=== PATIENT | female | born 1970 | race Caucasian/White ===

== ENCOUNTER 2019-04-29 13:56 | Inpatient (IN) | payer OTHER ==
[~2019-04-29] VITALS: Ht 167.6 cm; Wt 69.4 kg
[2019-04-29 16:45] VITALS: BP 161/70
[2019-04-29] MEDS ORDERED: WARFARIN SOD 5 MG TAB PO SCH (17:00)
[2019-04-29] MEDS ORDERED: MOM 30ML SUSPENSION UDC PO PRN (17:30)
[2019-04-29] MEDS ORDERED: diphenhydrAMINE CREAM 30GM TOP PRN (17:30)
[2019-04-29] MEDS ORDERED: THIA100T7 PO (18:13)
[2019-04-29] MEDS ORDERED: VITMTA PO (18:13)
[2019-04-29] MEDS ORDERED: WARF-23 PO (18:13)
[2019-04-29] MEDS ORDERED: WARF-18 PO (18:13)
[2019-04-29] MEDS ORDERED: PANT-23 PO (18:13)
[2019-04-29] MEDS ORDERED: FOLI1TAB11 PO (18:13)
[2019-04-29] MEDS ORDERED: LIPI80TA PO (18:13)
[2019-04-29] MEDS ORDERED: FLUO20CA22 PO (18:13)
[2019-04-29] MEDS ORDERED: COLA100C5 PO (18:13)
[2019-04-29] MEDS ORDERED: METO25TA4 PO (18:13)
[2019-04-29] MEDS ORDERED: VITA1CHW7 PO (18:13)
[2019-04-29] MEDS ORDERED: ASPI81TA26 PO (18:13)
--- NOTE | 2019-04-29 18:53 | CR.PDOC ---
General Date of Consultation: Apr 29, 2019 Referring Provider: YEYO PAINTING MD Attending Physician: ERIKA DUNLAP MD Consultation HOSPITALIST CONSULT REASON FOR CONSULTATION/CHIEF COMPLAINT: medical management of acute rehab patient HISTORY OF PRESENT ILLNESS: This is 49-year-old female with history of hypertension and tobacco use who presented to [facility] for left-sided hemiplegia and dysarthria. Was found to have hypoattenuation of the right MCA territory on CT head, and lab work revealing NSTEMI. She was diagnosed with an acute ischemic stroke with multifocal right MCA territory, right frontal and posterior parietal regions, left thumb make lacunar infarct, suspected embolic stroke 2/2 severe right ICA stenosis stenosis versus ventricular thrombus. Patient was started on warfarin goal INR 2-3, baby aspirin, atorvastatin, fluoxetine to promote motor recovery, and metoprolol. She was discharged to [facility] due to proximity to her home, and plan to follow-up outpatient neurology and cardiology. Hospitalist was consulted for continued medical management. Patient has no current complaints while examined at bedside. Continues to have left arm motor weakness and episodic paresthesia, however reports sensation has fully recovered. Also has residual left facial droop, but able to function without deficits in vision or language. Tolerating diet well. Denies any n/v/abd pain, chest pain, leg pain, or loss of sensation. ALLERGIES: Please see below. HOME MEDICATIONS: Please see below. PAST MEDICAL HISTORY: Acute embolic ischemic stroke-multifocal right MCA territory, right frontal and posterior parietal regions, left thalamic lacunar infarct Severe right carotid bifurcation stenosis >95%, 50% stenosis at left carotid bifurcation Ventricular thrombus chronic heart failure with reduced EF LVEF 40-45% Apical thrombus with hypokinetic apical wall NSTEMI-Ischemic cardiomyopathy with apical thrombus Hypertension Transient supraventricular tachycardia Right axillary hydradenitis Alcohol use disorder with withdrawal Pulmonary edema PAST SURGICAL HISTORY: none FAMILY HISTORY: strokes & heart attacks in multiple family members SOCIAL HISTORY: Tobacco: smoked 1.5 ppd for 15 years, quit since stroke Alcohol: drank 1 12-oz beer for years since years ago Work: [employer] Lives at home with REVIEW OF SYSTEMS: Constitutional: Denies fever, chills Eyes: Denies eye pain, vision change ENT: Denies headaches, ear pain, dysphagia Skin: Denies any rashes or lesions Pulmonary: Denies dyspnea, cough, wheezing Cardiac: Denies chest pain, palpitations, lightheadedness GI: Denies nausea, vomiting, abdominal pain MSK: Denies any new pains or muscle aches Neurologic: Admits left arm motor weakness and paresthesia. Denies sensory loss or any other deficit PHYSICAL EXAMINATION: VITAL SIGNS: Please see below. General exam: Alert and cooperative, A&Ox3, NAD Eye exam: PERRLA, EOMI ENT: Atraumatic, normocephalic, mucous membranes moist, no pharyngeal edema Neck: Supple Cardiac: RRR, normal S1 & S2, no murmurs Respiratory: CTAB, good air exchange, no wheezing, rhonchi, or rales Abdomen: normoactive bowel sounds, soft, nontender, nondistended Extremity: 2+ radial pulse on right, diminished on left arm, no edema or calf tenderness. Well-perfused x4 MSK: able to move all extremities independently against gravity, 5/5 in all limbs except left arm which is 3/5-only able to hold against gravity for few seconds, then drops. Skin: [place], warm, dry, no visible rash or lesions Neuro: normal tone & agent producer strength b/l, sensation intact throughout, normal speech, left facial droop with limited expression compared to right Psych: Normal mood and affect LABORATORY DATA: Please see below. ASSESSMENT/PLAN: 49-year-old female with recently diagnosed acute ischemic stroke, severe right ICA stenosis, ventricular thrombus, NSTEMI, ischemic cardio myopathy, transient SVT, alcohol tobacco use treated medically at [facility] and what appears to be without any surgical intervention. She is admitted to [facility] acute rehabilitation. Hospitalist is following for medical management 1. S/P ischemic stroke with residual left motor and facial deficits. Continue working with rehabilitation. Continue warfarin INR goal 2-3. Check daily labs and per [facility] recommendations, continue aspirin 81 mg, goal SBP 100-140, atorvastatin 80 mg, fluoxetine 20 mg. 2. Recent NSTEMI/ischemic cardiomyopathy: No current cardiac complaints. Hemodynamically stable. Per records, attributed to hypercoagulable state and left ventricular thrombus. Continue warfarin with goal INR 2-3 and follow-up outpatient cardiology. 3. Essential hypertension: Controlled. Continue Metoprolol 25mg twice a day 4. Transient asymptomatic SVT: See #3 5. Ischemic cardiomyopathy with apical thrombus: Currently stable. Continue warfarin and outpatient cardiology follow-up for repeat echo 6. History of alcohol use disorder with withdrawal: Patient has not drank since her stroke. S/p Serax taper at [facility]. Currently stable without any wit hdrawal. Continue thiamine folate multivitamin. DVT prophylaxis: Coumadin GI prophylaxis: Protonix CODE STATUS: Full code-discussed with the patient in depth, and patient verbalized YES to CPR and YES to intubation Disposition: Continue with acute rehabilitation. Thank you for involving us in this patient's care. We will follow along. Please call for any questions. Vital Signs/I&O Vital Signs Date Time Temp Pulse Resp B/P (MAP) Pulse Ox O2 Delivery O2 Flow Rate FiO2 04/29/19 16:45 98.6 70 18 161/70 (100) 98 Allergies Coded Allergies: No Known Allergies (Unverified , 04/29/19) Home Medications Scheduled Aspirin (Aspirin EC) 81 Mg Tablet.dr, 81 MG PO DAILY, (Reported) STARTED AT [facility] Atorvastatin Calcium (Lipitor) 80 Mg Tablet, 80 MG PO DAILY, (Reported) STARTED AT [facility] Cholecalciferol (Vitamin D3) (Vitamin D3) 2,000 Unit Tab.chew, 2,000 UNIT PO DAILY, (Reported) Docusate Sodium (Colace) 100 Mg Capsule, 100 MG PO BID, (Reported) STARTED AT [facility] Fluoxetine Hcl (Fluoxetine HCl) 20 Mg Capsule, 20 MG PO DAILY, (Reported) STARTED AT [facility] Folic Acid (Folic Acid) 1 Mg Tablet, 1 MG PO DAILY, (Reported) STARTED AT [facility] Metoprolol Tartrate (Metoprolol Tartrate) 25 Mg Tablet, 25 MG PO BID, (Reported) STARTED AT [facility] Multivitamins (Thera M Plus Tablet) 1 Each Tablet, 1 TAB PO DAILY, (Reported) STARTED AT [facility] Pantoprazole Sodium (Pantoprazole Sodium) 40 Mg Tablet.dr, 40 MG PO DAILY, (Reported) STARTED AT [facility] Thiamine HCl (Thiamine HCl) 100 Mg Tablet, 100 MG PO DAILY, (Reported) STARTED AT [facility] Warfarin Sodium (Warfarin Sodium) 2.5 Mg Tablet, 2.5 MG PO 5XW, (Reported) STARTED AT [facility]: SUN, TUES, WED, THURS, SAT Warfarin Sodium (Warfarin Sodium) 5 Mg Tablet, 5 MG PO 2XW, (Reported) STARTED AT [facility]: MON, FRI GME ATTESTATION GME ATTESTATION My faculty preceptor for this patient encounter was physically present during the encounter and was fully available. All aspects of the patient interview, examination, medical decision making process, and medical care plan development were reviewed and approved by the faculty preceptor. The faculty preceptor is aware and concurs with the plan as stated in the body of this note and will attest to such by his/her cosignature. ATTENDING NOTE I, Erika Dunlap, have independently examined this patient and performed my own physical exam, as well as reviewed the documentation and edited where necessary. I have discussed in detail with the resident / student the findings and plan of treatment as documented by the resident / student and edited their note. I agree with their findings and treatment plan and have edited their documentation. I will continue to follow the patient during this hospital stay. NICOLE FARRAR DO Apr 29, 2019 18:53 ERIKA DUNLAP MD May 12, 2019 15:51
[2019-04-29 20:00] VITALS: BP 117/59
[2019-04-29] MEDS: METOPROLOL TART 25 MG TABLET PO SCH (22:21)
[2019-04-29] MEDS: DOCUSATE SODIUM 100 MG CAP PO SCH (22:22)
[2019-04-29] MEDS: SENNA 8.6 MG TAB (SENOKOT) PO SCH (22:22)
[2019-04-29] MEDS: REMEDY PHYTOPLEX Z-GUARD PASTE 113GM TUBE (FROM STOREROOM PRODUCT) TOP SCH (22:22)
[2019-04-30 06:00] VITALS: BP 104/52
[2019-04-30 06:34] LABS: BASO # 0.1 10^3/uL (0.0-0.2); BASO % 0.6 % (0.0-1.0); EOS # 0.3 10^3/uL (0.0-0.5); EOS % 2.3 % (0.0-3.0); HEMATOCRIT 37.1 % (36.0-47.0); HEMOGLOBIN 12.2 g/dl (12.0-15.5); LYMPH # 3.9 10^3/uL (1.5-5.0); LYMPH % 31.1 % (24.0-44.0); MEAN CORPUSCULAR HEMOGLOBIN 28.8 pg (27.0-33.0); MEAN CORPUSCULAR HGB CONC 32.9 g/dl (32.0-36.5); MEAN CORPUSCULAR VOLUME 87.5 fl (80.0-96.0); MONO # 0.9 10^3/uL (0.0-0.8); MONO % 7.5 % (0.0-5.0); NEUTROPHILS # 7.3 10^3/uL (1.5-8.5); NEUTROPHILS % 58.3 % (36.0-66.0); PLATELET COUNT, AUTOMATED 436 10^3/uL (150-450); RED BLOOD COUNT 4.24 10^6/uL (4.00-5.40); WHITE BLOOD COUNT 12.5 10^3/uL (4.0-10.0)
[2019-04-30 06:51] LABS: INR 2.94; PROTHROMBIN TIME 30.6 SECONDS (11.8-14.0)
[2019-04-30 07:00] LABS: ALBUMIN 2.9 GM/DL (3.2-5.2); ALT/SGPT 29 U/L (12-78); BILIRUBIN,TOTAL 0.4 MG/DL (0.2-1.0); BLOOD UREA NITROGEN 8 MG/DL (7-18); CALCIUM LEVEL 9.2 MG/DL (8.5-10.1); CARBON DIOXIDE LEVEL 28 MEQ/L (21-32); CHLORIDE LEVEL 105 MEQ/L (98-107); CREATININE FOR GFR 0.69 MG/DL (0.55-1.30); GLOMERULAR FILTRATION RATE > 60.0 (>58); GLUCOSE, FASTING 105 MG/DL (70-100); POTASSIUM SERUM 4.1 MEQ/L (3.5-5.1); SODIUM LEVEL 137 MEQ/L (136-145); TOTAL PROTEIN 7.2 GM/DL (6.4-8.2)
[2019-04-30] MEDS: DOCUSATE SODIUM 100 MG CAP PO SCH ×2 (09:00→21:00)
[2019-04-30] MEDS: REMEDY PHYTOPLEX Z-GUARD PASTE 113GM TUBE (FROM STOREROOM PRODUCT) TOP SCH ×3 (09:00→21:21)
[2019-04-30] MEDS: PANTOPRAZOLE 40MG TAB (PROTONIX) PO SCH (09:18)
[2019-04-30] MEDS: FOLIC ACID 1 MG TAB PO SCH (09:18)
[2019-04-30] MEDS: VITAMIN D 1,000 INTERNATIONAL UNITS TABLET PO SCH (09:18)
[2019-04-30] MEDS: THIAMINE 100 MG TAB PO SCH (09:18)
[2019-04-30] MEDS: ASPIRIN 81 MG ENTERIC TAB PO SCH (09:18)
[2019-04-30] MEDS: ATORVASTATIN 20 MG TAB PO SCH (09:19)
[2019-04-30] MEDS: METOPROLOL TART 25 MG TABLET PO SCH ×2 (09:19→21:18)
[2019-04-30] MEDS: FLUoxetine 20 MG CAP PO SCH (09:19)
[2019-04-30] MEDS: MULTIVITAMINS/MINERALS THERAP 1 TAB PO SCH (09:19)
[2019-04-30 10:17] VITALS: BP 108/50
--- NOTE | 2019-04-30 12:55 | HPEPDOC ---
[facility] Note DATE OF ADMISSION: 04-29-19 DATE OF SERVICE: 04-30-19 TIME OF ADMISSION: Please refer to physician's admission order. SOURCE OF ADMISSION INFORMATION: [facility] and patient CHIEF COMPLAINT: stroke HISTORY OF PRESENT ILLNESS: 49F pmh HLD, etoh abuse, smoking, HTN, right axilla wound who presented to [facility] 04[facility] with left sided weakness and rightward gaze palsy with dysarthria where she was admitted to the stroke service, outside of the tPA window. MRI on 04-12-19 showed, Acute right middle cerebral artery infarct. No hemorrhage. CTA neck showed, Advanced atherosclerotic plaque disease at the right carotid bifurcation results in greater than 95 % diameter stenosis with diminutive flow within the distal right ICA that continues into the skull base and right MCA territory. Initial ECHO on 04-11-19 showed LVEF of 40-45% with an LV apical thrombus for which she was started on Heparin and transitioned to warfarin. Carotid endovascular intervention was postponed to avoid hemorrhagic conversion with patient instructed to follow-up with neurosurgery in 3 months. Of note she also was found to have an NSTEMI on admission for which intervention was deferred in setting of large vessel infarct. She was instructed to follow-up with cardiology in 3 months for repeat ECHO and to determine if she should continue Warfarin. Her right axillary hidradenitis suppurativa was treated with a course of antibiotics and she underwent etoh withdrawal treatment with Serax. She was placed on a dysphagia diet, evaluated by therapy, found to have deficits in mobility and ADLs and deemed medically appropriate for discharge to ARU on . REVIEW OF SYSTEMS: The following is a completed review of systems and has been reviewed. Review of systems otherwise unremarkable. PAIN: Patient self reports no pain EYES: No recent vision changes EARS, NOSE, & THROAT: +dysphagia CARDIOVASCULAR: Denies chest pain or palpitations PULMONARY: Denies shortness of breath GASTROINTESTINAL: Denies constipation/diarrhea GENITOURINARY: denies dysuria MUSCULOSKELETAL: left sided paresis NEUROLOGICAL:left sided neglect and paresis HEMATOLOGICAL: denies easy bruising SKIN: intact PSYCHIATRIC: Unremarkable All other review of systems found to be negative. PAST MEDICAL HISTORY: as per hpi PAST SURGICAL HISTORY: n/a ALLERGIES: Please see below. MEDICATIONS: Please see below. SOCIAL HISTORY:+daily smoker, +etoh, denies illicit drugs DIET: puree PHYSICAL EXAMINATION: VITAL SIGNS: Please see below. GENERAL: Pleasant and cooperative. No acute distress. left sided facial droop, +tongue deviation to the left HEENT: PERRL. Extraocular movements intact. Clear conjunctiva CARDIOVASCULAR: Regular rate and rhythm. No murmurs, rubs, or gallops LUNGS: Clear to auscultation bilaterally. No wheezes. No rhonchi]. ABDOMEN: Soft, nontender, nondistended. Positive bowel sounds. Normal active bowel sounds NEUROLOGICAL: Alert and oriented times three. Cranial nerves II through XII grossly intact. Sensation intact in RUE and RLE, patient has considerable neglect with decreased sensation left side EXTREMITIES: 5\5 strength right upper extremities. Left elbow flexor 2/3, elbow extensors 3/5, wrist extension 2/5, x ray equipment tester 3/5 (patient able to do it once her attention is brought to left side) 5/5 strength right lower extremity. 4-/5 strength in left lower extremity. SKIN: intact LABORATORY DATA: Please see below. IMAGING:Imaging documentation personally reviewed by record FUNCTIONAL STATUS: Premorbid: Independent with all activities of daily life as well as mobility On Admission: Moderate assistance with bed mobility, ambulation, functional transfers, dressing, toileting GOALS: Mod-I household distances with RW, stairs, functional transfers, bathing, dressing, toileting ASSESSMENT:49-year-old F with past medical history of hld who presents status post right MCA infarct PLAN: 1. rehab- PT/OT advance gait and ADL training, dynamic balance, fall recovery- strengthen/stretch/maintain ROM all 4 limbs -[employer]ODUCTION WORK[employer] for cognition and dysphagia- puree diet 2. Neuro: s/p right MCA infarct with left sided paresis -secondary stroke prevention- statin, ASA, BP management -Prozac for motor recovery -right ICA stenosis- f/u with neurosurgery in 3 months for possible procedure -for ETOH abuse management c/u thiamine, folic acid 3. cardiac: hx of HTN and recent NSTEMI c/u metoprolol and ASA- medicine consulted to assist in management -+LV thrombus on Warfarin, daily INRs goal 2-3, f/u with cardiology as outpatient top determine duration of treatment 4. Resp: monitor for infection, encourage incentive spirometer -Duonebs prn given hx of smoking 5. GI ppx: protonix 6. DVT ppx: on coumadin 7. Pain: tylenol prn 8. Dispo: TBD POST ADMISSION PHYSICIAN EVALUATION: Medical and functional status: Description of medical status, medical assessment: As above. Rehabilitation diagnosis and current and prior cold morbid medical conditions as above. Risk of complications and plans to mitigate them as above. Description of functional status current status is as above. Prior status as above. Status compared to preadmission: There are no clinically significant differences between the patient's current status and the information described on the preadmission screening document. Treatment plan anticipated: Treatment plan is as described above. Required disciplines including physical therapy, occupational therapy, others as noted above. Intensity of services: 3 hours a day, 6 days a week. Special considerations: There are no specific special or safety considerations that would likely preclude immediate implementation of an intensive rehabilitation program or subsequently influence the plan of care. ATTESTATION: Considering all the information above, it is my best judgment that this patient requires intensive rehabilitation therapy as described above and an inpatient hospital environment due to the complexity of nursing, medical, and rehabilitation needs required by the patient. Furthermore, this patient can reasonably be expected to participate in an benefit from an inpatient rehabilitation stay with an interdisciplinary team approach to the delivery of rehabilitation care under the direction and supervision of rehabilitation physician. PROGNOSIS: good ESTIMATED LENGTH OF STAY:21-24 days. PROJECTED DISCHARGE DESTINATION: Home with family support and any durable medical equipment required to increase functional safety and mobility. TIME SPENT COUNSELING AND COORDINATING INITIAL CARE: Greater than 70 minutes. Vital Signs Vital Sign - Last 24 Hours 04/29/19 04/29/19 04/29/19 04/30/19 16:45 20:00 22:21 06:00 Temp 98.6 97.9 97.8 Pulse 70 71 70 65 Resp 18 18 18 B/P (MAP) 161/70 (100) 117/59 (78) 130/48 104/52 (69) Pulse Ox 98 100 100 O2 Delivery Room Air Room Air 04/30/19 04/30/19 09:19 10:17 Temp 97.8 Pulse 66 66 Resp 18 B/P (MAP) 108/50 108/50 Pulse Ox 100 O2 Delivery Room Air Laboratory Data CBC/BMP Laboratory Tests 04/30/19 06:06 Labs 24H Laboratory Tests 2 04/30/19 06:06: Immature Granulocyte % (Auto) 0.2, Neutrophils (%) (Auto) 58.3, Lymphocytes (%) (Auto) 31.1, Monocytes (%) (Auto) 7.5H, Eosinophils (%) (Auto) 2.3, Basophils (%) (Auto) 0.6, Neutrophils # (Auto) 7.3, Lymphocytes # (Auto) 3.9, Monocytes # (Auto) 0.9H, Eosinophils # (Auto) 0.3, Basophils # (Auto) 0.1, Nucleated Red Blood Cells % (auto) 0.0, Prothrombin Time 30.6H, Prothromb Time International Ratio 2.94, Anion Gap 4L, Glomerular Filtration Rate > 60.0, Calcium Level 9.2, Total Bilirubin 0.4, Aspartate Amino Transf (AST/SGOT) 20, Alanine Aminotransferase (ALT/SGPT) 29, Alkaline Phosphatase 70, Total Protein 7.2, Albumin 2.9L, Albumin/Globulin Ratio 0.67L Home Medications Scheduled Aspirin (Aspirin EC) 81 Mg Tablet.dr, 81 MG PO DAILY, (Reported) STARTED AT [facility] Atorvastatin Calcium (Lipitor) 80 Mg Tablet, 80 MG PO DAILY, (Reported) STARTED AT [facility] Cholecalciferol (Vitamin D3) (Vitamin D3) 2,000 Unit Tab.chew, 2,000 UNIT PO DAILY, (Reported) Docusate Sodium (Colace) 100 Mg Capsule, 100 MG PO BID, (Reported) STARTED AT [facility] Fluoxetine Hcl (Fluoxetine HCl) 20 Mg Capsule, 20 MG PO DAILY, (Reported) STARTED AT [facility] Folic Acid (Folic Acid) 1 Mg Tablet, 1 MG PO DAILY, (Reported) STARTED AT [facility] Metoprolol Tartrate (Metoprolol Tartrate) 25 Mg Tablet, 25 MG PO BID, (Reported) STARTED AT [facility] Multivitamins (Thera M Plus Tablet) 1 Each Tablet, 1 TAB PO DAILY, (Reported) STARTED AT [facility] Pantoprazole Sodium (Pantoprazole Sodium) 40 Mg Tablet.dr, 40 MG PO DAILY, (Reported) STARTED AT [facility] Thiamine HCl (Thiamine HCl) 100 Mg Tablet, 100 MG PO DAILY, (Reported) STARTED AT [facility] Warfarin Sodium (Warfarin Sodium) 2.5 Mg Tablet, 2.5 MG PO 5XW, (Reported) STARTED AT [facility]: SUN, TUES, WED, THURS, SAT Warfarin Sodium (Warfarin Sodium) 5 Mg Tablet, 5 MG PO 2XW, (Reported) STARTED AT [facility] - [facility]: MON, FRI Allergies Coded Allergies: No Known Allergies (Unverified , 04/29/19) A-FIB/CHADSVASC A-FIB History Current/History of A-Fib/PAF?: No YEYO PAINTING MD Apr 30, 2019 12:55
[2019-04-30] MEDS ORDERED: IPRATROPIUM 0.5MG/ALBUTEROL 2.5MG INH SOL UD 3ML (DUONEB)(J7620) NEB PRN (13:00)
[2019-04-30 14:00] VITALS: BP 128/62
--- NOTE | 2019-04-30 14:12 | IPNPDOC ---
Text Note Date of Service The patient was seen on 04/30/19. NOTE HOSPITALIST NOTE S: Pt examined at bedside. Has no new complaints. Is feeling well, tolerating diet and rehabilitation. Denies all symptoms, including chest pain/palpitations, shortness of breath, new paresthesias or deficits, nausea, vomiting. PE: Vitals: see below General: NAD, A&Ox3, resting comfortably HEENT: NCAT, EOMI, anicteric sclera, MMM CV: RRR, no murmurs or clicks or rub. No edema RESP: CTAB, no w/r/r/ ABD: soft, NT, ND. Benign EXTREMITIES: 2+ radial pulses b/l, able to move all extremities, 3/5 on left arm, 5/5 remaining 3 limbs NEURO: no acute changes. Sensation intact throughout. No slurred speech A/P: 49-year-old female with recently diagnosed acute ischemic stroke, severe right ICA stenosis, ventricular thrombus, NSTEMI, ischemic cardio myopathy, transient SVT, alcohol tobacco use treated medically at [facility] and what appears to be without any surgical intervention. She is admitted to [facility] acute rehabilitation. Hospitalist is following for medical management 1. S/P ischemic stroke with residual left arm motor and facial deficits. Continue rehabilitation. Continue warfarin, in therapeutic range with INR goal 2-3. Continue aspirin 81 mg, goal SBP 100-140, atorvastatin 80 mg, fluoxetine 20 mg. 2. Recent NSTEMI/ischemic cardiomyopathy: No cardiac complaints. Hemodynamically stable. Continue warfarin with goal INR 2-3 and follow-up outpatient cardiology per their recommendations 3. Essential hypertension: Controlled. Continue Lopressor 25mg twice a day 4. Transient asymptomatic SVT: See #3 5. Ischemic cardiomyopathy with apical thrombus: Stable, no anginal equivaents. Continue warfarin and outpatient cardiology follow-up for repeat echo 6. History of alcohol use disorder with withdrawal: Patient has not drank since her stroke. S/p Serax taper at [facility]. Currently stable without any withdrawal. Continue thiamine folate multivitamin. DVT prophylaxis: Coumadin GI prophylaxis: Protonix CODE STATUS: Full code-discussed in depth on initial consult Disposition: Continue with acute rehabilitation. Hospitalist will continue following. Attending: Patient seen and examined independently. Agree with resident's note. VS,Naomi, I+O VS, Fishbone, I+O Laboratory Tests 04/30/19 06:06 Vital Signs Date Time Temp Pulse Resp B/P (MAP) Pulse Ox O2 Delivery O2 Flow Rate FiO2 04/30/19 10:17 97.8 66 18 108/50 100 Room Air I&O- Last 24 Hours up to 6 AM 04/30/19 06:00 Intake Total 420 ml Output Total 1200 ml Balance -780 ml GME ATTESTATION GME ATTESTATION My faculty preceptor for this patient encounter was physically present during the encounter and was fully available. All aspects of the patient interview, examination, medical decision making process, and medical care plan development were reviewed and approved by the faculty preceptor. The faculty preceptor is aware and concurs with the plan as stated in the body of this note and will attest to such by his/her cosignature. NICOLE FARRAR DO Apr 30, 2019 14:12 MARLA MACIAS MD May 13, 2019 22:05
[2019-04-30] MEDS ORDERED: WARFARIN SOD 2.5 MG TAB PO SCH (17:00)
[2019-04-30] MEDS: SENNA 8.6 MG TAB (SENOKOT) PO SCH (21:00)
[2019-04-30 21:03] VITALS: BP 124/96
[2019-05-01 05:47] VITALS: BP 139/61
[2019-05-01 07:41] LABS: BASO # 0.1 10^3/uL (0.0-0.2); BASO % 0.5 % (0.0-1.0); EOS # 0.2 10^3/uL (0.0-0.5); EOS % 1.7 % (0.0-3.0); HEMATOCRIT 40.3 % (36.0-47.0); HEMOGLOBIN 12.8 g/dl (12.0-15.5); LYMPH # 3.4 10^3/uL (1.5-5.0); LYMPH % 25.7 % (24.0-44.0); MEAN CORPUSCULAR HEMOGLOBIN 28.1 pg (27.0-33.0); MEAN CORPUSCULAR HGB CONC 31.8 g/dl (32.0-36.5); MEAN CORPUSCULAR VOLUME 88.4 fl (80.0-96.0); MONO # 0.7 10^3/uL (0.0-0.8); MONO % 5.1 % (0.0-5.0); NEUTROPHILS # 8.9 10^3/uL (1.5-8.5); NEUTROPHILS % 66.6 % (36.0-66.0); PLATELET COUNT, AUTOMATED 462 10^3/uL (150-450); RED BLOOD COUNT 4.56 10^6/uL (4.00-5.40); WHITE BLOOD COUNT 13.3 10^3/uL (4.0-10.0)
[2019-05-01 07:51] LABS: INR 3.41; PROTHROMBIN TIME 34.4 SECONDS (11.8-14.0)
[2019-05-01] MEDS: ATORVASTATIN 20 MG TAB PO SCH (08:51)
[2019-05-01] MEDS: THIAMINE 100 MG TAB PO SCH (08:51)
[2019-05-01] MEDS: FOLIC ACID 1 MG TAB PO SCH (08:51)
[2019-05-01] MEDS: MULTIVITAMINS/MINERALS THERAP 1 TAB PO SCH (08:51)
[2019-05-01] MEDS: VITAMIN D 1,000 INTERNATIONAL UNITS TABLET PO SCH (08:51)
[2019-05-01] MEDS: ASPIRIN 81 MG ENTERIC TAB PO SCH (08:51)
[2019-05-01] MEDS: PANTOPRAZOLE 40MG TAB (PROTONIX) PO SCH (08:51)
[2019-05-01] MEDS: FLUoxetine 20 MG CAP PO SCH (08:51)
[2019-05-01] MEDS: METOPROLOL TART 25 MG TABLET PO SCH ×2 (08:52→21:36)
[2019-05-01] MEDS: DOCUSATE SODIUM 100 MG CAP PO SCH ×2 (08:52→21:00)
[2019-05-01] MEDS: REMEDY PHYTOPLEX Z-GUARD PASTE 113GM TUBE (FROM STOREROOM PRODUCT) TOP SCH ×3 (08:52→21:00)
[2019-05-01 14:00] VITALS: BP 111/54
--- NOTE | 2019-05-01 15:19 | IPNPDOC ---
PM&R Progress Note DATE OF SERVICE: May 01, 2019 Bran Mixer Progress Note Subjective: Patient reporting mild cough with drinking liquids, denies fever or chills, denies difficulty urinating. REVIEW OF SYSTEMS: The following is a completed review of systems and has been reviewed. Review of systems otherwise unremarkable. PAIN: Patient self reports no pain EYES: No recent vision changes EARS, NOSE, & THROAT: +dysphagia CARDIOVASCULAR: Denies chest pain or palpitations PULMONARY: Denies shortness of breath GASTROINTESTINAL: Denies constipation/diarrhea GENITOURINARY: denies dysuria MUSCULOSKELETAL: left sided paresis NEUROLOGICAL:left sided neglect and paresis HEMATOLOGICAL: denies easy bruising SKIN: intact PSYCHIATRIC: Unremarkable All other review of systems found to be negative. PHYSICAL EXAMINATION: VITAL SIGNS: Please see below. GENERAL: Pleasant and cooperative. No acute distress. left sided facial droop, +tongue deviation to the left HEENT: PERRL. Extraocular movements intact. Clear conjunctiva CARDIOVASCULAR: Regular rate and rhythm. No murmurs, rubs, or gallops LUNGS: Clear to auscultation bilaterally. No wheezes. No rhonchi ABDOMEN: Soft, nontender, nondistended. Positive bowel sounds. Normal active bowel sounds NEUROLOGICAL: Alert and oriented times three. Cranial nerves II through XII grossly intact. Sensation intact in RUE and RLE, patient has considerable neglect with decreased sensation left side EXTREMITIES: 5\5 strength right upper extremities. Left elbow flexor 2/3, elbow extensors 3/5, wrist extension 2/5, shop manager 3/5 (patient able to do it once her attention is brought to left side) 5/5 strength right lower extremity. 4-/5 strength in left lower extremity. SKIN: intact ASSESSMENT:49-year-old F with past medical history of hld who presents status post right MCA infarct PLAN: 1. rehab- PT/OT advance gait and ADL training, dynamic balance, fall recovery- strengthen/stretch/maintain ROM all 4 limbs -TANK TENDER for cognition and dysphagia- puree diet and thins- MBS ordered for tomorrow to better determine if she can tolerate thins 2. Neuro: s/p right MCA infarct with left sided paresis -secondary stroke prevention- statin, ASA, BP management -Prozac for motor recovery -right ICA stenosis- f/u with neurosurgery in 3 months for possible procedure -for ETOH abuse management c/u thiamine, folic acid 3. cardiac: hx of HTN and recent NSTEMI c/u metoprolol and ASA- medicine consulted to assist in management -+LV thrombus on Warfarin, daily INRs goal 2-3, f/u with cardiology as outpatient top determine duration of treatment 4. Resp: monitor for infection, encourage incentive spirometer -Duonebs prn given hx of smoking 5. GI ppx: protonix 6. DVT ppx: on coumadin 7. Pain: tylenol prn 8. : patient denies dysuria, however given leukocytosis and sensory impairments, will order UA and Ucx 9. Dispo: TBD Allergies Coded Allergies: No Known Allergies (Unverified , 04/29/19) Vital Signs Vital Signs Date Time Temp Pulse Resp B/P (MAP) Pulse Ox O2 Delivery O2 Flow Rate FiO2 05/01/19 14:00 97.8 65 18 111/54 (73) 95 Room Air Laboratory Data CBC/BMP Laboratory Tests 05/01/19 07:13 Labs 24H Laboratory Tests 2 05/01/19 07:13: Immature Granulocyte % (Auto) 0.4, Neutrophils (%) (Auto) 66.6H, Lymphocytes (%) (Auto) 25.7, Monocytes (%) (Auto) 5.1H, Eosinophils (%) (Auto) 1.7, Basophils (%) (Auto) 0.5, Neutrophils # (Auto) 8.9H, Lymphocytes # (Auto) 3.4, Monocytes # (Auto) 0.7, Eosinophils # (Auto) 0.2, Basophils # (Auto) 0.1, Nucleated Red Bl ood Cells % (auto) 0.0, Prothrombin Time 34.4H, Prothromb Time International Ratio 3.41 Current Medications Current Medications Current Medications Medications (Trade) Dose Ordered Sig/[place] Route PRN Reason Start Time Stop Time Status Last Admin Dose Admin Acetaminophen (Tylenol Tab) 650 mg Q4HP PRN PO fever/MILD PAIN (PS 1-4) 04/29/19 17:30 Albuterol/ Ipratropium (Duoneb (Ipr 0.5mg/Alb 2.5mg)) 3 ml RTID PRN NEB wheeze 04/30/19 13:00 Aspirin (Ecotrin) 81 mg DAILY PO 04/30/19 09:00 05/01/19 08:51 Atorvastatin Calcium (Lipitor) 80 mg DAILY PO 04/30/19 09:00 05/01/19 08:51 Diphenhydramine HCl (Benadryl Cream) wherever she has rash/itch BIDP PRN TOP ITCHING 04/29/19 17:30 Docusate Sodium (Colace) 100 mg BID PO 04/29/19 21:00 Fluoxetine HCl (PROzac) 20 mg DAILY PO 04/30/19 09:00 05/01/19 08:51 Folic Acid (Folic Acid) 1 mg DAILY PO 04/30/19 09:00 05/01/19 08:51 Home Med (Med Rec Complete!) ASDIRECTED XX 04/29/19 18:15 04/29/19 18:14 DC Magnesium Hydroxide (Milk Of Magnesia) 30 ml DAILYPRN PRN PO CONSTIPATION 04/29/19 17:30 Metoprolol Tartrate (Lopressor) 25 mg BID PO 04/29/19 21:00 05/01/19 08:52 Multivitamins (Theragram-M) 1 tab DAILY PO 04/30/19 09:00 05/01/19 08:51 Pantoprazole Sodium (Protonix) 40 mg DAILY PO 04/30/19 09:00 05/01/19 08:51 Senna (Senokot) 1 tab QHS PO 04/29/19 21:00 Thiamine HCl (Thiamine HCl) 100 mg DAILY PO 04/30/19 09:00 05/01/19 08:51 Vitamin D (Vitamin D) 2,000 units DAILY PO 04/30/19 09:00 05/01/19 08:51 Warfarin Sodium (Coumadin) 2.5 mg DAILY@17 PO 05/02/19 17:00 Warfarin Sodium (Coumadin) 2.5 mg SuTuWeThSa@1700 PO 04/30/19 17:00 05/01/19 10:29 DC 04/30/19 17:53 Warfarin Sodium (Coumadin) 5 mg MoFr@1700 PO 04/29/19 17:00 05/01/19 10:29 DC 04/29/19 18:57 YEYO PAINTING MD May 01, 2019 15:19
[2019-05-01] MEDS: SENNA 8.6 MG TAB (SENOKOT) PO SCH (21:00)
[2019-05-01 21:11] VITALS: BP 117/56
[2019-05-02 05:52] VITALS: BP 132/61
[2019-05-02 07:07] LABS: BASO # 0.1 10^3/uL (0.0-0.2); BASO % 0.5 % (0.0-1.0); EOS # 0.3 10^3/uL (0.0-0.5); EOS % 2.1 % (0.0-3.0); HEMATOCRIT 35.2 % (36.0-47.0); HEMOGLOBIN 11.5 g/dl (12.0-15.5); LYMPH # 3.4 10^3/uL (1.5-5.0); LYMPH % 27.6 % (24.0-44.0); MEAN CORPUSCULAR HEMOGLOBIN 28.6 pg (27.0-33.0); MEAN CORPUSCULAR HGB CONC 32.7 g/dl (32.0-36.5); MEAN CORPUSCULAR VOLUME 87.6 fl (80.0-96.0); MONO # 0.9 10^3/uL (0.0-0.8); MONO % 7.6 % (0.0-5.0); NEUTROPHILS # 7.6 10^3/uL (1.5-8.5); NEUTROPHILS % 61.8 % (36.0-66.0); PLATELET COUNT, AUTOMATED 405 10^3/uL (150-450); RED BLOOD COUNT 4.02 10^6/uL (4.00-5.40); WHITE BLOOD COUNT 12.4 10^3/uL (4.0-10.0)
[2019-05-02 07:17] LABS: INR 2.9; PROTHROMBIN TIME 30.2 SECONDS (11.8-14.0)
[2019-05-02 07:34] LABS: BLOOD UREA NITROGEN 8 MG/DL (7-18); CALCIUM LEVEL 8.7 MG/DL (8.5-10.1); CARBON DIOXIDE LEVEL 28 MEQ/L (21-32); CHLORIDE LEVEL 106 MEQ/L (98-107); CREATININE FOR GFR 0.62 MG/DL (0.55-1.30); GLOMERULAR FILTRATION RATE > 60.0 (>58); GLUCOSE, FASTING 97 MG/DL (70-100); POTASSIUM SERUM 3.9 MEQ/L (3.5-5.1); SODIUM LEVEL 140 MEQ/L (136-145)
[2019-05-02] MEDS: FLUoxetine 20 MG CAP PO SCH (08:36)
[2019-05-02] MEDS: FOLIC ACID 1 MG TAB PO SCH (08:36)
[2019-05-02] MEDS: METOPROLOL TART 25 MG TABLET PO SCH ×2 (08:36→21:34)
[2019-05-02] MEDS: PANTOPRAZOLE 40MG TAB (PROTONIX) PO SCH (08:36)
[2019-05-02] MEDS: ATORVASTATIN 20 MG TAB PO SCH (08:36)
[2019-05-02] MEDS: MULTIVITAMINS/MINERALS THERAP 1 TAB PO SCH (08:36)
[2019-05-02] MEDS: ASPIRIN 81 MG ENTERIC TAB PO SCH (08:36)
[2019-05-02] MEDS: THIAMINE 100 MG TAB PO SCH (08:36)
[2019-05-02] MEDS: VITAMIN D 1,000 INTERNATIONAL UNITS TABLET PO SCH (08:36)
[2019-05-02] MEDS: DOCUSATE SODIUM 100 MG CAP PO SCH ×2 (08:36→21:00)
[2019-05-02] MEDS: REMEDY PHYTOPLEX Z-GUARD PASTE 113GM TUBE (FROM STOREROOM PRODUCT) TOP SCH ×3 (08:37→21:00)
--- NOTE | 2019-05-02 09:46 | IPNPDOC ---
PM&R Progress Note DATE OF SERVICE: May 02, 2019 Cover Marker Progress Note Subjective: Patient reporting she feels well, denies any cough fevers or chills. REVIEW OF SYSTEMS: The following is a completed review of systems and has been reviewed. Review of systems otherwise unremarkable. PAIN: Patient self reports no pain EYES: No recent vision changes EARS, NOSE, & THROAT: +dysphagia CARDIOVASCULAR: Denies chest pain or palpitations PULMONARY: Denies shortness of breath GASTROINTESTINAL: Denies constipation/diarrhea GENITOURINARY: denies dysuria MUSCULOSKELETAL: left sided paresis NEUROLOGICAL:left sided neglect and paresis HEMATOLOGICAL: denies easy bruising SKIN: intact PSYCHIATRIC: Unremarkable All other review of systems found to be negative. PHYSICAL EXAMINATION: VITAL SIGNS: Please see below. GENERAL: Pleasant and cooperative. No acute distress. left sided facial droop, +tongue deviation to the left HEENT: PERRL. Extraocular movements intact. Clear conjunctiva CARDIOVASCULAR: Regular rate and rhythm. No murmurs, rubs, or gallops LUNGS: Clear to auscultation bilaterally. No wheezes. No rhonchi ABDOMEN: Soft, nontender, nondistended. Positive bowel sounds. Normal active bowel sounds NEUROLOGICAL: Alert and oriented times three. Cranial nerves II through XII grossly intact. Sensation intact in RUE and RLE, patient has considerable neglect with decreased sensation left side EXTREMITIES: 5\5 strength right upper extremities. Left elbow flexor 2/3, elbow extensors 3/5, wrist extension 2/5, personal shopper 3/5 (patient able to do it once her attention is brought to left side) 5/5 strength right lower extremity. 4-/5 strength in left lower extremity. SKIN: intact ASSESSMENT:49-year-old F with past medical history of hld who presents status post right MCA infarct PLAN: 1. rehab- PT/OT advance gait and ADL training, dynamic balance, fall recovery- strengthen/stretch/maintain ROM all 4 limbs -HANDS AND DIAL INSPECTOR for cognition and dysphagia- puree diet and thins- MBS ordered, patient safe on thins 2. Neuro: s/p right MCA infarct with left sided paresis -secondary stroke prevention- statin, ASA, BP management -Prozac for motor recovery -right ICA stenosis- f/u with neurosurgery in 3 months for possible procedure -for ETOH abuse management c/u thiamine, folic acid 3. cardiac: hx of HTN and recent NSTEMI c/u metoprolol and ASA- medicine consulted to assist in management -+LV thrombus on Warfarin, daily INRs goal 2-3, f/u with cardiology as outpatient top determine duration of treatment 4. Resp: monitor for infection, encourage incentive spirometer -Duonebs prn given hx of smoking 5. GI ppx: protonix 6. DVT ppx: on coumadin 7. Pain: tylenol prn 8. : UA negative 9. Dispo: TBD Allergies Coded Allergies: No Known Allergies (Unverified , 04/29/19) Vital Signs Vital Signs Date Time Temp Pulse Resp B/P (MAP) Pulse Ox O2 Delivery O2 Flow Rate FiO2 05/02/19 08:36 79 132/61 05/02/19 05:52 97.2 18 98 Room Air Laboratory Data CBC/BMP Laboratory Tests 05/02/19 06:27 Labs 24H Laboratory Tests 2 05/02/19 06:27: Immature Granulocyte % (Auto) 0.4, Neutrophils (%) (Auto) 61.8, Lymphocytes (%) (Auto) 27.6, Monocytes (%) (Auto) 7.6H, Eosinophils (%) (Auto) 2.1, Basophils (%) (Auto) 0.5, Neutrophils # (Auto) 7.6, Lymphocytes # (Auto) 3.4, Monocytes # (Auto) 0.9H, Eosinophils # (Auto) 0.3, Basophils # (Auto) 0.1, Nucleated Red Blood Cells % (auto) 0.0, Prothrombin Time 30.2H, Prothromb Time International Ratio 2.90, Anion Gap 6L, Glomerular Filtration Rate > 60.0, Calcium Level 8.7 Current Medications Current Medications Current Medications Medications (Trade) Dose Ordered Sig/[place] Route PRN Reason Start Time Stop Time Status Last Admin Dose Admin Acetaminophen (Tylenol Tab) 650 mg Q4HP PRN PO fever/MILD PAIN (PS 1-4) 04/29/19 17:30 Albuterol/ Ipratropium (Duoneb (Ipr 0.5mg/Alb 2.5mg)) 3 ml RTID PRN NEB wheeze 04/30/19 13:00 Aspirin (Ecotrin) 81 mg DAILY PO 04/30/19 09:00 05/02/19 08:36 Atorvastatin Calcium (Lipitor) 80 mg DAILY PO 04/30/19 09:00 05/02/19 08:36 Diphenhydramine HCl (Benadryl Cream) wherever she has rash/itch BIDP PRN TOP ITCHING 04/29/19 17:30 Docusate Sodium (Colace) 100 mg BID PO 04/29/19 21:00 05/02/19 08:36 Fluoxetine HCl (PROzac) 20 mg DAILY PO 04/30/19 09:00 05/02/19 08:36 Folic Acid (Folic Acid) 1 mg DAILY PO 04/30/19 09:00 05/02/19 08:36 Home Med (Med Rec Complete!) ASDIRECTED XX 04/29/19 18:15 04/29/19 18:14 DC Magnesium Hydroxide (Milk Of Magnesia) 30 ml DAILYPRN PRN PO CONSTIPATION 04/29/19 17:30 Metoprolol Tartrate (Lopressor) 25 mg BID PO 04/29/19 21:00 05/02/19 08:36 Multivitamins (Theragram-M) 1 tab DAILY PO 04/30/19 09:00 05/02/19 08:36 Pantoprazole Sodium (Protonix) 40 mg DAILY PO 04/30/19 09:00 05/02/19 08:36 Senna (Senokot) 1 tab QHS PO 04/29/19 21:00 Thiamine HCl (Thiamine HCl) 100 mg DAILY PO 04/30/19 09:00 05/02/19 08:36 Vitamin D (Vitamin D) 2,000 units DAILY PO 04/30/19 09:00 05/02/19 08:36 Warfarin Sodium (Coumadin) 2.5 mg DAILY@17 PO 05/02/19 17:00 Warfarin Sodium (Coumadin) 2.5 mg SuTuWeThSa@1700 PO 04/30/19 17:00 05/01/19 10:29 DC 04/30/19 17:53 Warfarin Sodium (Coumadin) 5 mg MoFr@1700 PO 04/29/19 17:00 05/01/19 10:29 DC 04/29/19 18:57 YEYO PAINTING MD May 02, 2019 09:46
[2019-05-02] MEDS ORDERED: E-Z-PAQUE 96% w/w SUSP 176GM BTL As Ordered ONE (11:00)
[2019-05-02] MEDS ORDERED: VARIBAR NECTAR 40% w/v 240ML SUSP BTL As Ordered ONE (11:00)
[2019-05-02] MEDS ORDERED: BARIUM SULFATE 700 MG TABLET (E-Z-DISK) As Ordered ONE (11:00)
[2019-05-02] MEDS ORDERED: VARIBAR PUDDING 40% w/v 230ML TUBE As Ordered ONE (11:00)
[2019-05-02 14:00] VITALS: BP 109/54
[2019-05-02] MEDS ORDERED: WARFARIN SOD 2.5 MG TAB PO SCH (17:00)
[2019-05-02] MEDS: WARFARIN SOD 2 MG TAB PO SCH (17:11)
--- NOTE | 2019-05-02 19:34 | REP ---
Examination Requested: Cookie Swallow Reason For Exam: Dysphasia The procedure was performed by IFTIKHAR Hess, under the direct supervision of Dr. Shanks. The procedure was performed with Venessa Choi from speech pathology present. 5 ml aliquots of thin, pudding, mixed fruit, soft food, hard food and pill consistency barium was administered. Lash penetration is visualized with thin consistency barium. The detailed report of this examination will be provided by speech pathology. 1.7 minutes of fluoroscopy time was utilized for this procedure. Reviewed by IFTIKHAR Morales 05/02/2019 12:05 P Electronically Signed by James Shanks MD 05/02/2019 07:25 P
[2019-05-02 20:00] VITALS: BP 123/60
[2019-05-02] MEDS: SENNA 8.6 MG TAB (SENOKOT) PO SCH (21:00)
[2019-05-03 06:00] VITALS: BP 119/62
[2019-05-03] MEDS: REMEDY PHYTOPLEX Z-GUARD PASTE 113GM TUBE (FROM STOREROOM PRODUCT) TOP SCH ×3 (09:00→21:00)
[2019-05-03] MEDS: MULTIVITAMINS/MINERALS THERAP 1 TAB PO SCH (09:49)
[2019-05-03] MEDS: PANTOPRAZOLE 40MG TAB (PROTONIX) PO SCH (09:49)
[2019-05-03] MEDS: DOCUSATE SODIUM 100 MG CAP PO SCH ×2 (09:49→21:00)
[2019-05-03] MEDS: VITAMIN D 1,000 INTERNATIONAL UNITS TABLET PO SCH (09:50)
[2019-05-03] MEDS: METOPROLOL TART 25 MG TABLET PO SCH ×2 (09:50→21:41)
[2019-05-03] MEDS: ATORVASTATIN 20 MG TAB PO SCH (09:50)
[2019-05-03] MEDS: FOLIC ACID 1 MG TAB PO SCH (09:50)
[2019-05-03] MEDS: FLUoxetine 20 MG CAP PO SCH (09:50)
[2019-05-03] MEDS: ASPIRIN 81 MG ENTERIC TAB PO SCH (09:50)
[2019-05-03] MEDS: THIAMINE 100 MG TAB PO SCH (09:50)
[2019-05-03 10:26] LABS: INR 2.32; PROTHROMBIN TIME 25.3 SECONDS (11.8-14.0)
[2019-05-03 14:00] VITALS: BP 110/53
[2019-05-03] MEDS: WARFARIN SOD 2 MG TAB PO SCH (17:06)
[2019-05-03 21:00] VITALS: BP 135/60
[2019-05-03] MEDS: SENNA 8.6 MG TAB (SENOKOT) PO SCH (21:00)
[2019-05-04] VITALS (7 sets, daily range): BP systolic 117–182; BP diastolic 59–81
[2019-05-04] MEDS: ACETAMINOPHEN TAB 650MG DOSE (2X325MG) PO PRN ×2 (07:36→20:13)
--- NOTE | 2019-05-04 08:40 | REP ---
PA and lateral chest: There are no comparisons. The lung aldana are clear. The cardiac size is normal. The lexa, mediastinum, and skeletal structures are unremarkable. Impression: Negative PA and lateral chest. Electronically Signed by Ben Almeida MD 05/04/2019 08:32 A
[2019-05-04] MEDS: FOLIC ACID 1 MG TAB PO SCH (08:42)
[2019-05-04] MEDS: DOCUSATE SODIUM 100 MG CAP PO SCH ×2 (08:42→20:15)
[2019-05-04] MEDS: THIAMINE 100 MG TAB PO SCH (08:42)
[2019-05-04] MEDS: ASPIRIN 81 MG ENTERIC TAB PO SCH (08:42)
[2019-05-04] MEDS: MULTIVITAMINS/MINERALS THERAP 1 TAB PO SCH (08:42)
[2019-05-04] MEDS: ATORVASTATIN 20 MG TAB PO SCH (08:42)
[2019-05-04] MEDS: VITAMIN D 1,000 INTERNATIONAL UNITS TABLET PO SCH (08:42)
[2019-05-04] MEDS: PANTOPRAZOLE 40MG TAB (PROTONIX) PO SCH (08:42)
[2019-05-04] MEDS: FLUoxetine 20 MG CAP PO SCH (08:42)
[2019-05-04] MEDS: METOPROLOL TART 25 MG TABLET PO SCH ×2 (08:42→20:13)
[2019-05-04 08:54] LABS: HEMATOCRIT 35.8 % (36.0-47.0); HEMOGLOBIN 11.9 g/dl (12.0-15.5); MEAN CORPUSCULAR HEMOGLOBIN 28.8 pg (27.0-33.0); MEAN CORPUSCULAR HGB CONC 33.2 g/dl (32.0-36.5); MEAN CORPUSCULAR VOLUME 86.7 fl (80.0-96.0); PLATELET COUNT, AUTOMATED 333 10^3/uL (150-450); RED BLOOD COUNT 4.13 10^6/uL (4.00-5.40); WHITE BLOOD COUNT 7.6 10^3/uL (4.0-10.0)
[2019-05-04] MEDS: REMEDY PHYTOPLEX Z-GUARD PASTE 113GM TUBE (FROM STOREROOM PRODUCT) TOP SCH ×3 (09:00→20:15)
[2019-05-04 09:03] LABS: INR 1.98; PROTHROMBIN TIME 22.2 SECONDS (11.8-14.0)
[2019-05-04 09:13] LABS: BLOOD UREA NITROGEN 10 MG/DL (7-18); C REACTIVE PROTEIN QUANTITATIV 1.06 MG/DL (0.00-0.30); CALCIUM LEVEL 8.5 MG/DL (8.5-10.1); CARBON DIOXIDE LEVEL 24 MEQ/L (21-32); CHLORIDE LEVEL 104 MEQ/L (98-107); CREATININE FOR GFR 0.81 MG/DL (0.55-1.30); GLOMERULAR FILTRATION RATE > 60.0 (>58); GLUCOSE, FASTING 103 MG/DL (70-100); SODIUM LEVEL 136 MEQ/L (136-145)
--- NOTE | 2019-05-04 12:23 | IPNPDOC ---
Text Note Date of Service The patient was seen on 05/04/19. NOTE HOSPITALIST NOTE S: Pt examined during therapy. She has no complaints and otherwise doing well. Noted to have low-grade temp this a.m. which appears to be a false-positive as it was taken temporally while she was under her blankets sleeping and workup unrevealing. Denies all symptoms, including any cough, fever, chills, abdominal discomfort, constipation, diarrhea, urinary frequency or urgency or dysuria. PE: Vitals: see below General: NAD, A&Ox3, moving comfortably in therapy HEENT: NCAT, EOMI, anicteric sclera, MMM, supple neck CV: RRR, no murmurs or clicks or rub. No edema RESP: CTAB, no w/r/r, equal chest rise, no accessory muscle use ABD: soft, NT, ND. Benign EXTREMITIES: 2+ radial pulses b/l, able to move all extremities, 3/5 on left arm, 5/5 remaining 3 limbs. Able to hold up left arm longer than prior days NEURO: no acute changes. Sensation intact throughout. No slurred speech A/P: 49-year-old female with recently diagnosed acute ischemic stroke, severe right ICA stenosis, ventricular thrombus, NSTEMI, ischemic cardiomyopathy, transient SVT treated medically at [facility] and what appears to be without any surgical intervention. She is admitted to [facility] acute rehabilitation. Hospitalist is following for medical management 1. S/P ischemic stroke with residual left arm motor and facial deficits. Continue rehabilitation. INR goal 2-3, subtherapeutic this am, increase Coumadin to 2.5mg, repeat tomorrow. Continue aspirin 81 mg, atorvastatin 80 mg, fluoxetine 20 mg. 2. Recent NSTEMI/ischemic cardiomyopathy: No cardiac complaints. Hemodynamically stable. Continue warfarin with goal INR 2-3 and follow-up outpatient cardiology per their recommendations 3. Essential hypertension: Controlled. Continue Lopressor 25mg twice a day 4. Transient asymptomatic SVT: See #2 5. History of ischemic cardiomyopathy with apical thrombus: Stable, no anginal equivalents. Continue warfarin and outpatient cardiology follow-up for repeat echo 6. History of alcohol use disorder with withdrawal: Patient has not drank since her stroke. S/p Serax taper at Health system. Currently stable without any withdrawal. Continue thiamine folate multivitamin. DVT prophylaxis: Coumadin GI prophylaxis: Protonix CODE STATUS: Full code-discussed in depth on initial consult Disposition: Continue with acute rehabilitation. Hospitalist will continue following. VS,Fishbone, I+O VS, Fishbone, I+O Laboratory Tests 05/04/19 08:09 Vital Signs Date Time Temp Pulse Resp B/P (MAP) Pulse Ox O2 Delivery O2 Flow Rate FiO2 05/04/19 08:42 101 141/65 05/04/19 08:30 97.8 05/04/19 07:10 18 93 Room Air I&O- Last 24 Hours up to 6 AM 05/04/19 06:00 Intake Total 1740 ml Balance 1740 ml GME ATTESTATION GME ATTESTATION My faculty preceptor for this patient encounter was physically present during the encounter and was fully available. All aspects of the patient interview, examination, medical decision making process, and medical care plan development were reviewed and approved by the faculty preceptor. The faculty preceptor is aware and concurs with the plan as stated in the body of this note and will attest to such by his/her cosignature. NICOLE FARRAR DO May 04, 2019 12:23
[2019-05-04] MEDS: WARFARIN SOD 2.5 MG TAB PO SCH (16:13)
[2019-05-04 16:50] LABS: APPEARANCE, URINE HAZY (CLEAR); BACTERIA, URINE AUTO 3+ (NEGATIVE); BILIRUBIN, URINE AUTO NEGATIVE (NEGATIVE); BLOOD, URINE BLOOD NEGATIVE (NEGATIVE); COLOR, URINE YELLOW (YELLOW); GLUCOSE, URINE (UA) AUTO NEGATIVE (NEGATIVE); KETONE, URINE AUTO NEGATIVE (NEGATIVE); LEUKOCYTE ESTERASE, URINE AUTO NEGATIVE (NEGATIVE); MUCUS, URINE SMALL (NEGATIVE); NITRITE, URINE AUTO NEGATIVE (NEGATIVE); PROTEIN, URINE AUTO NEGATIVE (NEGATIVE); RBC, URINE AUTO 2 /HPF (0-3); SPECIFIC GRAVITY URINE AUTO 1.013 (1.002-1.035); SQUAMOUS EPITHELIAL CELL UR AU 3 /HPF (0-6); UROBILINOGEN, URINE AUTO 0.2 mg/dL (0.0-2.0); WBC, URINE AUTO 7 /HPF (0-3)
[2019-05-04] MEDS: SENNA 8.6 MG TAB (SENOKOT) PO SCH (20:15)
[2019-05-05] MEDS: OSELTAMIVIR PHOSPHATE 75 MG CAP (TAMIFLU) PO SCH ×3 (01:36→22:31)
[2019-05-05] MEDS: ACETAMINOPHEN TAB 650MG DOSE (2X325MG) PO PRN ×2 (01:37→22:31)
[2019-05-05 05:43] VITALS: BP 126/61
[2019-05-05 08:09] LABS: BASO % 0.2 % (0.0-1.0); EOS % 0.1 % (0.0-3.0); HEMATOCRIT 36.2 % (36.0-47.0); HEMOGLOBIN 12.1 g/dl (12.0-15.5); LYMPH # 1.3 10^3/uL (1.5-5.0); LYMPH % 16.3 % (24.0-44.0); MEAN CORPUSCULAR HEMOGLOBIN 28.8 pg (27.0-33.0); MEAN CORPUSCULAR HGB CONC 33.4 g/dl (32.0-36.5); MEAN CORPUSCULAR VOLUME 86.2 fl (80.0-96.0); MONO # 0.9 10^3/uL (0.0-0.8); MONO % 11.1 % (0.0-5.0); NEUTROPHILS # 5.8 10^3/uL (1.5-8.5); NEUTROPHILS % 71.9 % (36.0-66.0); PLATELET COUNT, AUTOMATED 279 10^3/uL (150-450)
[2019-05-05 08:20] LABS: INR 1.8; PROTHROMBIN TIME 20.7 SECONDS (11.8-14.0)
[2019-05-05 08:25] LABS: BLOOD UREA NITROGEN 10 MG/DL (7-18); CALCIUM LEVEL 8.2 MG/DL (8.5-10.1); CARBON DIOXIDE LEVEL 24 MEQ/L (21-32); CHLORIDE LEVEL 104 MEQ/L (98-107); CREATININE FOR GFR 0.63 MG/DL (0.55-1.30); GLOMERULAR FILTRATION RATE > 60.0 (>58); GLUCOSE, FASTING 86 MG/DL (70-100); POTASSIUM SERUM 3.6 MEQ/L (3.5-5.1); SODIUM LEVEL 136 MEQ/L (136-145)
[2019-05-05] MEDS: MULTIVITAMINS/MINERALS THERAP 1 TAB PO SCH (08:45)
[2019-05-05] MEDS: PANTOPRAZOLE 40MG TAB (PROTONIX) PO SCH (08:45)
[2019-05-05] MEDS: FLUoxetine 20 MG CAP PO SCH (08:45)
[2019-05-05] MEDS: DOCUSATE SODIUM 100 MG CAP PO SCH ×2 (08:46→22:31)
[2019-05-05] MEDS: METOPROLOL TART 25 MG TABLET PO SCH ×2 (08:46→22:32)
[2019-05-05] MEDS: REMEDY PHYTOPLEX Z-GUARD PASTE 113GM TUBE (FROM STOREROOM PRODUCT) TOP SCH ×3 (08:46→21:00)
[2019-05-05] MEDS: FOLIC ACID 1 MG TAB PO SCH (08:46)
[2019-05-05] MEDS: ASPIRIN 81 MG ENTERIC TAB PO SCH (08:46)
[2019-05-05] MEDS: THIAMINE 100 MG TAB PO SCH (08:46)
[2019-05-05] MEDS: ATORVASTATIN 20 MG TAB PO SCH (08:46)
[2019-05-05] MEDS: VITAMIN D 1,000 INTERNATIONAL UNITS TABLET PO SCH (08:46)
[2019-05-05 14:00] VITALS: BP 113/57
[2019-05-05] MEDS ORDERED: WARFARIN SOD 2.5 MG TAB PO ONE (17:00)
[2019-05-05] MEDS: WARFARIN SOD 2.5 MG TAB PO SCH (17:04)
[2019-05-05 20:00] VITALS: BP 117/56
[2019-05-05] MEDS: SENNA 8.6 MG TAB (SENOKOT) PO SCH (22:31)
[2019-05-06 06:00] VITALS: BP 81/70
[2019-05-06 06:10] VITALS: BP 122/66
[2019-05-06 06:40] VITALS: BP_SYST 60
[2019-05-06 07:06] LABS: INR 1.83; PROTHROMBIN TIME 20.9 SECONDS (11.8-14.0)
[2019-05-06 07:55] VITALS: BP 84/52
[2019-05-06] MEDS ORDERED: NS 1,000 ML IV ONE (08:00)
[2019-05-06 08:05] LABS: BLOOD UREA NITROGEN 10 MG/DL (7-18); C REACTIVE PROTEIN QUANTITATIV 1.08 MG/DL (0.00-0.30); CALCIUM LEVEL 8.8 MG/DL (8.5-10.1); CARBON DIOXIDE LEVEL 26 MEQ/L (21-32); CHLORIDE LEVEL 105 MEQ/L (98-107); CREATININE FOR GFR 0.85 MG/DL (0.55-1.30); GLOMERULAR FILTRATION RATE > 60.0 (>58); GLUCOSE, FASTING 107 MG/DL (70-100); POTASSIUM SERUM 3.7 MEQ/L (3.5-5.1); SODIUM LEVEL 138 MEQ/L (136-145)
[2019-05-06 08:09] LABS: HEMATOCRIT 39.7 % (36.0-47.0); HEMOGLOBIN 12.8 g/dl (12.0-15.5); MEAN CORPUSCULAR HEMOGLOBIN 28.1 pg (27.0-33.0); MEAN CORPUSCULAR HGB CONC 32.2 g/dl (32.0-36.5); MEAN CORPUSCULAR VOLUME 87.1 fl (80.0-96.0); PLATELET COUNT, AUTOMATED 287 10^3/uL (150-450); RED BLOOD COUNT 4.56 10^6/uL (4.00-5.40); WHITE BLOOD COUNT 6.7 10^3/uL (4.0-10.0)
[2019-05-06] MEDS: VITAMIN D 1,000 INTERNATIONAL UNITS TABLET PO SCH (08:24)
[2019-05-06] MEDS: ASPIRIN 81 MG ENTERIC TAB PO SCH (08:24)
[2019-05-06] MEDS: MULTIVITAMINS/MINERALS THERAP 1 TAB PO SCH (08:24)
[2019-05-06] MEDS: FLUoxetine 20 MG CAP PO SCH (08:24)
[2019-05-06] MEDS: DOCUSATE SODIUM 100 MG CAP PO SCH ×2 (08:24→20:57)
[2019-05-06] MEDS: THIAMINE 100 MG TAB PO SCH (08:24)
[2019-05-06] MEDS: OSELTAMIVIR PHOSPHATE 75 MG CAP (TAMIFLU) PO SCH ×2 (08:24→20:58)
[2019-05-06] MEDS: FOLIC ACID 1 MG TAB PO SCH (08:24)
[2019-05-06] MEDS: PANTOPRAZOLE 40MG TAB (PROTONIX) PO SCH (08:24)
[2019-05-06] MEDS: ATORVASTATIN 20 MG TAB PO SCH (08:24)
[2019-05-06] MEDS: REMEDY PHYTOPLEX Z-GUARD PASTE 113GM TUBE (FROM STOREROOM PRODUCT) TOP SCH ×3 (08:25→20:58)
[2019-05-06] MEDS: METOPROLOL TART 25 MG TABLET PO SCH (08:25)
[2019-05-06 14:00] VITALS: BP 118/58
--- NOTE | 2019-05-06 14:43 | IPNPDOC ---
PM&R Progress Note DATE OF SERVICE: May 06, 2019 Marriage Counselor Minister Progress Note Subjective: Patient reporting she does not feel dizzy, denies having fever, and is able to participate in therapy. REVIEW OF SYSTEMS: The following is a completed review of systems and has been reviewed. Review of systems otherwise unremarkable. PAIN: Patient self reports no pain EYES: No recent vision changes EARS, NOSE, & THROAT: +dysphagia CARDIOVASCULAR: Denies chest pain or palpitations PULMONARY: Denies shortness of breath GASTROINTESTINAL: Denies constipation/diarrhea GENITOURINARY: denies dysuria MUSCULOSKELETAL: left sided paresis NEUROLOGICAL:left sided neglect and paresis HEMATOLOGICAL: denies easy bruising SKIN: intact PSYCHIATRIC: Unremarkable All other review of systems found to be negative. PHYSICAL EXAMINATION: VITAL SIGNS: Please see below. GENERAL: Pleasant and cooperative. No acute distress. left sided facial droop, +tongue deviation to the left HEENT: PERRL. Extraocular movements intact. Clear conjunctiva CARDIOVASCULAR: Regular rate and rhythm. No murmurs, rubs, or gallops LUNGS: Clear to auscultation bilaterally. No wheezes. No rhonchi ABDOMEN: Soft, nontender, nondistended. Positive bowel sounds. Normal active bowel sounds NEUROLOGICAL: Alert and oriented times three. Cranial nerves II through XII grossly intact. Sensation intact in RUE and RLE, patient has considerable neglect with decreased sensation left side EXTREMITIES: 5\5 strength right upper extremities. Left elbow flexor 2/3, elbow extensors 3/5, wrist extension 2/5, electronic resources librarian 3/5 (patient able to do it once her attention is brought to left side) 5/5 strength right lower extremity. 4-/5 strength in left lower extremity. SKIN: intact ASSESSMENT:49-year-old F with past medical history of hld who presents status post right MCA infarct PLAN: 1. rehab- PT/OT advance gait and ADL training, dynamic balance, fall recovery- strengthen/stretch/maintain ROM all 4 limbs- ambulating without AD -FERMENTER WINE for cognition and dysphagia- upgraded to level 3 and thins 2. Neuro: s/p right MCA infarct with left sided paresis -secondary stroke prevention- statin, ASA, BP management -Prozac for motor recovery -right ICA stenosis- f/u with neurosurgery in 3 months for possible procedure -for ETOH abuse management c/u thiamine, folic acid 3. cardiac: hx of HTN and recent NSTEMI c/u metoprolol and ASA- medicine consulted to assist in management -+LV thrombus on Warfarin, daily INRs goal 2-3, f/u with cardiology as outpatient top determine duration of treatment 4. Resp: monitor for infection, encourage incentive spirometer, influenza, c/u tamiflu patient denies any further fevers or respiratory symptoms -Duonebs prn given hx of smoking 5. GI ppx: protonix 6. DVT ppx: on coumadin 7. Pain: tylenol prn 8. : UA negative 9. Dispo: TBD Allergies Coded Allergies: No Known Allergies (Unverified , 04/29/19) Vital Signs Vital Signs Date Time Temp Pulse Resp B/P (MAP) Pulse Ox O2 Delivery O2 Flow Rate FiO2 05/06/19 14:00 97.8 75 18 118/58 (78) 100 Room Air 05/04/19 21:30 1.0 Laboratory Data CBC/BMP Laboratory Tests 05/06/19 06:21 Labs 24H Laboratory Tests 2 05/06/19 06:21: Nucleated Red Blood Cells % (auto) 0.0, Anion Gap 7L, Glomerular Filtration Rate > 60.0, Calcium Level 8.8, C-Reactive Protein, Quantitative 1.08H 05/06/19 06:23: Prothrombin Time 20.9H, Prothromb Time International Ratio 1.83 Microbiology Microbiology 05/04/19 Respiratory Virus Panel (PCR) ([facility]) - Final, Complete Influenza A H1-2009 05/04/19 Blood Culture - Preliminary, Resulted No Growth after 48 hours. All Specime... 05/04/19 Blood Culture - Preliminary, Resulted No Growth after 48 hours. All Specime... Current Medications Current Medications Current Medications Medications (Trade) Dose Ordered Sig/[place] Route PRN Reason Start Time Stop Time Status Last Admin Dose Admin Acetaminophen (Tylenol Tab) 650 mg Q4HP PRN PO fever/MILD PAIN (PS 1-4) 04/29/19 17:30 05/05/19 22:31 Albuterol/ Ipratropium (Duoneb (Ipr 0.5mg/Alb 2.5mg)) 3 ml RTID PRN NEB wheeze/SOB 04/30/19 13:00 Aspirin (Ecotrin) 81 mg DAILY PO 04/30/19 09:00 05/06/19 08:24 Atorvastatin Calcium (Lipitor) 80 mg DAILY PO 04/30/19 09:00 05/06/19 08:24 Diphenhydramine HCl (Benadryl Cream) wherever she has rash/itch BIDP PRN TOP ITCHING 04/29/19 17:30 Docusate Sodium (Colace) 100 mg BID PO 04/29/19 21:00 05/06/19 08:24 Fluoxetine HCl (PROzac) 20 mg DAILY PO 04/30/19 09:00 05/06/19 08:24 Folic Acid (Folic Acid) 1 mg DAILY PO 04/30/19 09:00 05/06/19 08:24 Home Med (Med Rec Complete!) ASDIRECTED XX 04/29/19 18:15 04/29/19 18:14 DC Magnesium Hydroxide (Milk Of Magnesia) 30 ml DAILYPRN PRN PO CONSTIPATION 04/29/19 17:30 Metoprolol Tartrate (Lopressor) 25 mg BID PO 04/29/19 21:00 05/06/19 10:13 DC 05/05/19 22:32 Multivitamins (Theragram-M) 1 tab DAILY PO 04/30/19 09:00 05/06/19 08:24 Oseltamivir Phosphate (Tamiflu) 75 mg BID PO 05/05/19 01:00 05/09/19 12:00 05/06/19 08:24 Pantoprazole Sodium (Protonix) 40 mg DAILY PO 04/30/19 09:00 05/06/19 08:24 Senna (Senokot) 1 tab QHS PO 04/29/19 21:00 05/05/19 22:31 Thiamine HCl (Thiamine HCl) 100 mg DAILY PO 04/30/19 09:00 05/06/19 08:24 Vitamin D (Vitamin D) 2,000 units DAILY PO 04/30/19 09:00 05/06/19 08:24 Warfarin Sodium (Coumadin) 2 mg DAILY@17 PO 05/02/19 17:00 05/04/19 10:54 DC 05/03/19 17:06 Warfarin Sodium (Coumadin) 2.5 mg DAILY@17 PO 05/02/19 17:00 05/02/19 09:46 DC Warfarin Sodium (Coumadin) 2.5 mg DAILY@17 PO 05/04/19 17:00 05/06/19 07:45 DC 05/05/19 17:04 Warfarin Sodium (Coumadin) 2.5 mg SuTuWeThSa@1700 PO 04/30/19 17:00 05/01/19 10:29 DC 04/30/19 17:53 Warfarin Sodium (Coumadin) 3.75 mg DAILY@17 PO 05/06/19 17:00 Warfarin Sodium (Coumadin) 5 mg MoFr@1700 PO 04/29/19 17:00 05/01/19 10:29 DC 04/29/19 18:57 YEYO PAINTING MD May 06, 2019 14:43
[2019-05-06] MEDS ORDERED: WARFARIN SOD 7.5 MG TAB PO SCH (17:00)
[2019-05-06 20:00] VITALS: BP 138/63
[2019-05-06] MEDS: SENNA 8.6 MG TAB (SENOKOT) PO SCH (20:57)
[2019-05-06] MEDS: ACETAMINOPHEN TAB 650MG DOSE (2X325MG) PO PRN (20:58)
[2019-05-07 05:48] VITALS: BP_SYST 109; BP_SYST 124; BP_SYST 146; BP_DIAS 51; BP_DIAS 53
[2019-05-07 07:09] LABS: INR 2.24; PROTHROMBIN TIME 24.6 SECONDS (11.8-14.0)
[2019-05-07] MEDS: REMEDY PHYTOPLEX Z-GUARD PASTE 113GM TUBE (FROM STOREROOM PRODUCT) TOP SCH ×3 (09:00→21:00)
[2019-05-07] MEDS: ASPIRIN 81 MG ENTERIC TAB PO SCH (09:12)
[2019-05-07] MEDS: DOCUSATE SODIUM 100 MG CAP PO SCH ×2 (09:12→20:08)
[2019-05-07] MEDS: PANTOPRAZOLE 40MG TAB (PROTONIX) PO SCH (09:12)
[2019-05-07] MEDS: THIAMINE 100 MG TAB PO SCH (09:12)
[2019-05-07] MEDS: FLUoxetine 20 MG CAP PO SCH (09:12)
[2019-05-07] MEDS: OSELTAMIVIR PHOSPHATE 75 MG CAP (TAMIFLU) PO SCH ×2 (09:12→20:08)
[2019-05-07] MEDS: VITAMIN D 1,000 INTERNATIONAL UNITS TABLET PO SCH (09:12)
[2019-05-07] MEDS: FOLIC ACID 1 MG TAB PO SCH (09:12)
[2019-05-07] MEDS: MULTIVITAMINS/MINERALS THERAP 1 TAB PO SCH (09:12)
[2019-05-07] MEDS: ATORVASTATIN 20 MG TAB PO SCH (09:12)
[2019-05-07 14:00] VITALS: BP 112/58
[2019-05-07] MEDS ORDERED: WARFARIN SOD 3 MG TAB PO SCH (17:00)
--- NOTE | 2019-05-07 17:47 | IPNPDOC ---
PM&R Progress Note DATE OF SERVICE: May 07, 2019 Computer Technology Teacher Progress Note Subjective: Patient reporting her left shoulder aches at night. She also states she banged her right foot while at [employer] and is having sharp pains and aches. REVIEW OF SYSTEMS: The following is a completed review of systems and has been reviewed. Review of systems otherwise unremarkable. PAIN: Patient self reports no pain EYES: No recent vision changes EARS, NOSE, & THROAT: +dysphagia CARDIOVASCULAR: Denies chest pain or palpitations PULMONARY: Denies shortness of breath GASTROINTESTINAL: Denies constipation/diarrhea GENITOURINARY: denies dysuria MUSCULOSKELETAL: left sided paresis NEUROLOGICAL:left sided neglect and paresis HEMATOLOGICAL: denies easy bruising SKIN: intact PSYCHIATRIC: Unremarkable All other review of systems found to be negative. PHYSICAL EXAMINATION: VITAL SIGNS: Please see below. GENERAL: Pleasant and cooperative. No acute distress. left sided facial droop, +tongue deviation to the left HEENT: PERRL. Extraocular movements intact. Clear conjunctiva CARDIOVASCULAR: Regular rate and rhythm. No murmurs, rubs, or gallops LUNGS: Clear to auscultation bilaterally. No wheezes. No rhonchi ABDOMEN: Soft, nontender, nondistended. Positive bowel sounds. Normal active bowel sounds NEUROLOGICAL: Alert and oriented times three. Cranial nerves II through XII grossly intact. Sensation intact in RUE and RLE, patient has considerable neglect with decreased sensation left side EXTREMITIES: 5\5 strength right upper extremities. Left elbow flexor 2/3, elbow extensors 3/5, wrist extension 2/5, inspector line 3/5 (patient able to do it once her attention is brought to left side) 5/5 strength right lower extremity. 4-/5 strength in left lower extremity. right 1st toe- mild ecchymosis at MTP joint, no warmth/swelling, TTP at the IP joint SKIN: intact ASSESSMENT:49-year-old F with past medical history of hld who presents status post right MCA infarct PLAN: 1. rehab- PT/OT advance gait and ADL training, dynamic balance, fall recovery- strengthen/stretch/maintain ROM all 4 limbs- ambulating without AD -TEACHER OF THE HANDICAPPED for cognition and dysphagia- upgraded to level 3 and thins 2. Neuro: s/p right MCA infarct with left sided paresis -secondary stroke prevention- statin, ASA, BP management -Prozac for motor recovery -right ICA stenosis- f/u with neurosurgery in 3 months for possible procedure -for ETOH abuse management c/u thiamine, folic acid 3. cardiac: hx of HTN and recent NSTEMI, holding metoprolol due to soft BPs, c/u ASA- medicine consulted to assist in management -+LV thrombus on Warfarin, daily INRs goal 2-3, f/u with cardiology as outpatient top determine duration of treatment 4. Resp: monitor for infection, encourage incentive spirometer, influenza, c/u tamiflu patient denies any further fevers or respiratory symptoms -Duonebs prn given hx of smoking 5. GI ppx: protonix 6. DVT ppx: on coumadin 7. Pain: will change tylneol to standing, lidocaine cream to right 1st toe, lidoderm patch to left shoulder 8. : UA negative 9. Dispo: 05-14-19 to home, progressing towards goals Allergies Coded Allergies: No Known Allergies (Unverified , 04/29/19) Vital Signs Vital Signs Date Time Temp Pulse Resp B/P (MAP) Pulse Ox O2 Delivery O2 Flow Rate FiO2 05/07/19 14:00 97.0 83 18 112/58 (76) 95 Room Air 05/04/19 21:30 1.0 Laboratory Data Labs 24H Laboratory Tests 2 05/07/19 06:43: Prothrombin Time 24.6H, Prothromb Time International Ratio 2.24 Microbiology Microbiology 05/04/19 Respiratory Virus Panel (PCR) ([facility]) - Final, Complete Influenza A H1-2009 05/04/19 Blood Culture - Preliminary, Resulted No Growth after 72 hours. All specime... 05/04/19 Blood Culture - Preliminary, Resulted No Growth after 72 hours. All specime... Current Medications Current Medications Current Medications Medications (Trade) Dose Ordered Sig/[place] Route PRN Reason Start Time Stop Time Status Last Admin Dose Admin Acetaminophen (Tylenol Tab) 650 mg Q4HP PRN PO fever/MILD PAIN (PS 1-4) 04/29/19 17:30 05/07/19 17:43 DC 05/06/19 20:58 Acetaminophen (Tylenol Tab) 1,000 mg TID PO 05/07/19 16:00 Albuterol/ Ipratropium (Duoneb (Ipr 0.5mg/Alb 2.5mg)) 3 ml RTID PRN NEB wheeze/SOB 04/30/19 13:00 Aspirin (Ecotrin) 81 mg DAILY PO 04/30/19 09:00 05/07/19 09:12 Atorvastatin Calcium (Lipitor) 80 mg DAILY PO 04/30/19 09:00 05/07/19 09:12 Diphenhydramine HCl (Benadryl Cream) wherever she has rash/itch BIDP PRN TOP ITCHING 04/29/19 17:30 Docusate Sodium (Colace) 100 mg BID PO 04/29/19 21:00 05/07/19 09:12 Fluoxetine HCl (PROzac) 20 mg DAILY PO 04/30/19 09:00 05/07/19 09:12 Folic Acid (Folic Acid) 1 mg DAILY PO 04/30/19 09:00 05/07/19 09:12 Home Med (Med Rec Complete!) ASDIRECTED XX 04/29/19 18:15 04/29/19 18:14 DC Lidocaine (Lidoderm Patch) 1 patch QHS TD 05/07/19 21:00 Lidocaine HCl (Lmx 4/Anecream) 1 dose BID TOP 05/07/19 21:00 UNV Magnesium Hydroxide (Milk Of Magnesia) 30 ml DAILYPRN PRN PO CONSTIPATION 04/29/19 17:30 Metoprolol Tartrate (Lopressor) 25 mg BID PO 04/29/19 21:00 05/06/19 10:13 DC 05/05/19 22:32 Multivitamins (Theragram-M) 1 tab DAILY PO 04/30/19 09:00 05/07/19 09:12 Non-Formulary Medication ( See Comment Field Below ) REMOVE LIDODERM PATCH DAILY@0900 XX 05/08/19 09:00 Oseltamivir Phosphate (Tamiflu) 75 mg BID PO 05/05/19 01:00 05/09/19 12:00 05/07/19 09:12 Pantoprazole Sodium (Protonix) 40 mg DAILY PO 04/30/19 09:00 05/07/19 09:12 Senna (Senokot) 1 tab QHS PO 04/29/19 21:00 05/06/19 20:57 Thiamine HCl (Thiamine HCl) 100 mg DAILY PO 04/30/19 09:00 05/07/19 09:12 Vitamin D (Vitamin D) 2,000 units DAILY PO 04/30/19 09:00 05/07/19 09:12 Warfarin Sodium (Coumadin) 2 mg DAILY@17 PO 05/02/19 17:00 05/04/19 10:54 DC 05/03/19 17:06 Warfarin Sodium (Coumadin) 2.5 mg DAILY@17 PO 05/02/19 17:00 05/02/19 09:46 DC Warfarin Sodium (Coumadin) 2.5 mg DAILY@17 PO 05/04/19 17:00 05/06/19 07:45 DC 05/05/19 17:04 Warfarin Sodium (Coumadin) 2.5 mg SuTuWeThSa@1700 PO 04/30/19 17:00 05/01/19 10:29 DC 04/30/19 17:53 Warfarin Sodium (Coumadin) 3 mg DAILY@17 PO 05/07/19 17:00 05/07/19 17:16 Warfarin Sodium (Coumadin) 3.75 mg DAILY@17 PO 05/06/19 17:00 05/07/19 07:47 DC 05/06/19 18:01 Warfarin Sodium (Coumadin) 5 mg MoFr@1700 PO 04/29/19 17:00 05/01/19 10:29 DC 04/29/19 18:57 YEYO PAINTING MD May 07, 2019 17:47
[2019-05-07] MEDS: ACETAMINOPHEN 500 MG TAB PO SCH ×2 (18:16→20:08)
[2019-05-07 20:00] VITALS: BP 132/61
[2019-05-07] MEDS: SENNA 8.6 MG TAB (SENOKOT) PO SCH (20:08)
[2019-05-07] MEDS: LIDOCAINE 4% CREAM 5GM (LMX4) TOP SCH (20:09)
[2019-05-07] MEDS: LIDOCAINE 5% (LIDODERM) PATCH TD SCH (20:09)
[2019-05-08 06:00] VITALS: BP 148/66
[2019-05-08 06:47] LABS: BASO % 0.3 % (0.0-1.0); EOS # 0.1 10^3/uL (0.0-0.5); EOS % 1.2 % (0.0-3.0); HEMATOCRIT 37.2 % (36.0-47.0); HEMOGLOBIN 12.2 g/dl (12.0-15.5); LYMPH # 2.5 10^3/uL (1.5-5.0); LYMPH % 43.8 % (24.0-44.0); MEAN CORPUSCULAR HEMOGLOBIN 28.4 pg (27.0-33.0); MEAN CORPUSCULAR HGB CONC 32.8 g/dl (32.0-36.5); MEAN CORPUSCULAR VOLUME 86.7 fl (80.0-96.0); MONO # 0.3 10^3/uL (0.0-0.8); MONO % 5.6 % (0.0-5.0); NEUTROPHILS # 2.8 10^3/uL (1.5-8.5); NEUTROPHILS % 48.9 % (36.0-66.0); PLATELET COUNT, AUTOMATED 243 10^3/uL (150-450); RED BLOOD COUNT 4.29 10^6/uL (4.00-5.40); WHITE BLOOD COUNT 5.8 10^3/uL (4.0-10.0)
[2019-05-08 07:03] LABS: INR 2.91; PROTHROMBIN TIME 30.3 SECONDS (11.8-14.0)
[2019-05-08 07:08] LABS: BLOOD UREA NITROGEN 6 MG/DL (7-18); CALCIUM LEVEL 8.4 MG/DL (8.5-10.1); CARBON DIOXIDE LEVEL 27 MEQ/L (21-32); CHLORIDE LEVEL 109 MEQ/L (98-107); CREATININE FOR GFR 0.65 MG/DL (0.55-1.30); GLOMERULAR FILTRATION RATE > 60.0 (>58); GLUCOSE, FASTING 85 MG/DL (70-100); POTASSIUM SERUM 3.8 MEQ/L (3.5-5.1); SODIUM LEVEL 142 MEQ/L (136-145)
[2019-05-08] MEDS: ACETAMINOPHEN 500 MG TAB PO SCH ×3 (08:26→22:00)
[2019-05-08 09:00] VITALS: BP_SYST 120; BP_SYST 128; BP_SYST 132; BP_DIAS 70; BP_DIAS 72
[2019-05-08] MEDS: FLUoxetine 20 MG CAP PO SCH (09:02)
[2019-05-08] MEDS: ASPIRIN 81 MG ENTERIC TAB PO SCH (09:02)
[2019-05-08] MEDS: VITAMIN D 1,000 INTERNATIONAL UNITS TABLET PO SCH (09:02)
[2019-05-08] MEDS: DOCUSATE SODIUM 100 MG CAP PO SCH ×2 (09:02→20:15)
[2019-05-08] MEDS: FOLIC ACID 1 MG TAB PO SCH (09:02)
[2019-05-08] MEDS: MULTIVITAMINS/MINERALS THERAP 1 TAB PO SCH (09:02)
[2019-05-08] MEDS: OSELTAMIVIR PHOSPHATE 75 MG CAP (TAMIFLU) PO SCH ×2 (09:02→20:24)
[2019-05-08] MEDS: ATORVASTATIN 20 MG TAB PO SCH (09:02)
[2019-05-08] MEDS: THIAMINE 100 MG TAB PO SCH (09:02)
[2019-05-08] MEDS: REMEDY PHYTOPLEX Z-GUARD PASTE 113GM TUBE (FROM STOREROOM PRODUCT) TOP SCH ×3 (09:03→20:25)
[2019-05-08] MEDS: LIDOCAINE 4% CREAM 5GM (LMX4) TOP SCH ×2 (09:03→20:24)
[2019-05-08] MEDS: PANTOPRAZOLE 40MG TAB (PROTONIX) PO SCH (09:03)
[2019-05-08] MEDS: **NOTE PATIENT COMMENT** MISC XX SCH (09:04)
[2019-05-08 14:00] VITALS: BP 120/63
[2019-05-08] MEDS: METOPROLOL SUCC *XL* 12.5MG PER 1/2 TAB (TopROL *XL*) PO SCH (14:00)
--- NOTE | 2019-05-08 15:26 | IPNPDOC ---
PM&R Progress Note DATE OF SERVICE: May 08, 2019 Paralegal Specialist Progress Note Subjective: Patient reporting her right toe still hurts despite the cream and tylenol. REVIEW OF SYSTEMS: The following is a completed review of systems and has been reviewed. Review of systems otherwise unremarkable. PAIN: Patient self reports no pain EYES: No recent vision changes EARS, NOSE, & THROAT: +dysphagia (improving) CARDIOVASCULAR: Denies chest pain or palpitations PULMONARY: Denies shortness of breath GASTROINTESTINAL: Denies constipation/diarrhea GENITOURINARY: denies dysuria MUSCULOSKELETAL: left sided paresis NEUROLOGICAL:left sided neglect and paresis HEMATOLOGICAL: denies easy bruising SKIN: intact PSYCHIATRIC: Unremarkable All other review of systems found to be negative. PHYSICAL EXAMINATION: VITAL SIGNS: Please see below. GENERAL: Pleasant and cooperative. No acute distress. left sided facial droop, +tongue deviation to the left HEENT: PERRL. Extraocular movements intact. Clear conjunctiva CARDIOVASCULAR: Regular rate and rhythm. No murmurs, rubs, or gallops LUNGS: Clear to auscultation bilaterally. No wheezes. No rhonchi ABDOMEN: Soft, nontender, nondistended. Positive bowel sounds. Normal active bowel sounds NEUROLOGICAL: Alert and oriented times three. Cranial nerves II through XII grossly intact. Sensation intact in RUE and RLE, patient has considerable neglect with decreased sensation left side EXTREMITIES: 5\5 strength right upper extremities. Left elbow flexor 2/3, elbow extensors 3/5, wrist extension 2/5, space studies faculty member 3/5 (patient able to do it once her attention is brought to left side) 5/5 strength right lower extremity. 4-/5 strength in left lower extremity. right 1st toe- mild ecchymosis at MTP joint, no warmth/swelling, TTP at the IP joint SKIN: intact ASSESSMENT:49-year-old F with past medical history of hld who presents status post right MCA infarct PLAN: 1. rehab- PT/OT advance gait and ADL training, dynamic balance, fall recovery- strengthen/stretch/maintain ROM all 4 limbs- ambulating without AD -suede cleaner consult placed for left AFO -MEAT HOSTESS for cognition and dysphagia- upgraded to level 3 and thins-requires supervision for all meals given impulsivity 2. Neuro: s/p right MCA infarct with left sided paresis -secondary stroke prevention- statin, ASA, BP management -Prozac for motor recovery -right ICA stenosis- f/u with neurosurgery in 3 months for possible procedure -for ETOH abuse management c/u thiamine, folic acid 3. cardiac: hx of HTN and recent NSTEMI, holding metoprolol due to soft BPs, c/u ASA- medicine consulted to assist in management -+LV thrombus on Warfarin, daily INRs goal 2-3, f/u with cardiology as outpatient top determine duration of treatment 4. Resp: monitor for infection, encourage incentive spirometer, influenza, s/p course of tamiflu patient denies any further fevers or respiratory symptoms -Duonebs prn given hx of smoking 5. GI ppx: protonix 6. DVT ppx: on coumadin 7. Pain: c/u tylneol to standing and will add gabapentin, lidocaine cream to right 1st toe, lidoderm patch to left shoulder -foot Xray ordered to r/o fracture 8. : UA negative 9. Dispo: 05-14-19 to home, progressing towards goals Allergies Coded Allergies: No Known Allergies (Unverified , 04/29/19) Vital Signs Vital Signs Date Time Temp Pulse Resp B/P (MAP) Pulse Ox O2 Delivery O2 Flow Rate FiO2 05/08/19 14:00 59 120/63 05/08/19 06:00 97.0 16 97 Room Air 05/04/19 21:30 1.0 Laboratory Data CBC/BMP Laboratory Tests 05/08/19 06:29 Labs 24H Laboratory Tests 2 05/08/19 06:29: Immature Granulocyte % (Auto) 0.2, Neutrophils (%) (Auto) 48.9, Lymphocytes (%) (Auto) 43.8, Monocytes (%) (Auto) 5.6H, Eosinophils (%) (Auto) 1.2, Basophils (%) (Auto) 0.3, Neutrophils # (Auto) 2.8, Lymphocytes # (Auto) 2.5, Monocytes # (Auto) 0.3, Eosinophils # (Auto) 0.1, Basophils # (Auto) 0.0, Nucleated Red Blood Cells % (auto) 0.0, Prothrombin Time 30.3H, Prothromb Time International Ratio 2.91, Anion Gap 6L, Glomerular Filtration Rate > 60.0, Calcium Level 8.4L Microbiology Microbiology 05/04/19 Respiratory Virus Panel (PCR) ([facility]) - Final, Complete Influenza A H1-2009 05/04/19 Blood Culture - Preliminary, Resulted No Growth after 72 hours. All specime... 05/04/19 Blood Culture - Preliminary, Resulted No Growth after 72 hours. All specime... Current Medications Current Medications Current Medications Medications (Trade) Dose Ordered Sig/[place] Route PRN Reason Start Time Stop Time Status Last Admin Dose Admin Acetaminophen (Tylenol Tab) 650 mg Q4HP PRN PO fever/MILD PAIN (PS 1-4) 04/29/19 17:30 05/07/19 17:43 DC 05/06/19 20:58 Acetaminophen (Tylenol Tab) 1,000 mg TID PO 05/07/19 16:00 05/08/19 08:26 Albuterol/ Ipratropium (Duoneb (Ipr 0.5mg/Alb 2.5mg)) 3 ml RTID PRN NEB wheeze/SOB 04/30/19 13:00 Aspirin (Ecotrin) 81 mg DAILY PO 04/30/19 09:00 05/08/19 09:02 Atorvastatin Calcium (Lipitor) 80 mg DAILY PO 04/30/19 09:00 05/08/19 09:02 Diphenhydramine HCl (Benadryl Cream) wherever she has rash/itch BIDP PRN TOP ITCHING 04/29/19 17:30 Docusate Sodium (Colace) 100 mg BID PO 04/29/19 21:00 05/08/19 09:02 Fluoxetine HCl (PROzac) 20 mg DAILY PO 04/30/19 09:00 05/08/19 09:02 Folic Acid (Folic Acid) 1 mg DAILY PO 04/30/19 09:00 05/08/19 09:02 Gabapentin (Neurontin) 100 mg TID PO 05/08/19 16:00 Home Med (Med Rec Complete!) ASDIRECTED XX 04/29/19 18:15 04/29/19 18:14 DC Lidocaine (Lidoderm Patch) 1 patch QHS TD 05/07/19 21:00 05/07/19 20:09 Lidocaine HCl (Lmx 4/Anecream) 1 dose BID TOP 05/07/19 21:00 05/08/19 09:03 Magnesium Hydroxide (Milk Of Magnesia) 30 ml DAILYPRN PRN PO CONSTIPATION 2/17/20 17:30 Metoprolol Succinate (TopROL XL) 12.5 mg DAILY PO 05/08/19 09:00 Metoprolol Tartrate (Lopressor) 25 mg BID PO 04/29/19 21:00 05/06/19 10:13 DC 05/05/19 22:32 Multivitamins (Theragram-M) 1 tab DAILY PO 04/30/19 09:00 05/08/19 09:02 Non-Formulary Medication ( See Comment Field Below ) REMOVE LIDODERM PATCH DAILY@0900 XX 05/08/19 09:00 05/08/19 09:04 Oseltamivir Phosphate (Tamiflu) 75 mg BID PO 05/05/19 01:00 05/09/19 12:00 05/08/19 09:02 Pantoprazole Sodium (Protonix) 40 mg DAILY PO 04/30/19 09:00 05/08/19 09:03 Senna (Senokot) 1 tab QHS PO 04/29/19 21:00 05/07/19 20:08 Thiamine HCl (Thiamine HCl) 100 mg DAILY PO 04/30/19 09:00 05/08/19 09:02 Vitamin D (Vitamin D) 2,000 units DAILY PO 04/30/19 09:00 05/08/19 09:02 Warfarin Sodium (Coumadin) 2 mg DAILY@17 PO 05/02/19 17:00 05/04/19 10:54 DC 05/03/19 17:06 Warfarin Sodium (Coumadin) 2.5 mg DAILY@17 PO 05/02/19 17:00 05/02/19 09:46 DC Warfarin Sodium (Coumadin) 2.5 mg DAILY@17 PO 05/04/19 17:00 05/06/19 07:45 DC 05/05/19 17:04 Warfarin Sodium (Coumadin) 2.5 mg DAILY@17 PO 05/08/19 17:00 Warfarin Sodium (Coumadin) 2.5 mg SuTuWeThSa@1700 PO 04/30/19 17:00 05/01/19 10:29 DC 04/30/19 17:53 Warfarin Sodium (Coumadin) 3 mg DAILY@17 PO 05/07/19 17:00 05/08/19 10:36 DC 05/07/19 17:16 Warfarin Sodium (Coumadin) 3.75 mg DAILY@17 PO 05/06/19 17:00 05/07/19 07:47 DC 05/06/19 18:01 Warfarin Sodium (Coumadin) 5 mg MoFr@1700 PO 04/29/19 17:00 05/01/19 10:29 DC 04/29/19 18:57 YEYO PAINTING MD May 08, 2019 15:26
[2019-05-08] MEDS: GABAPENTIN 100 MG CAP PO SCH ×2 (16:38→20:24)
--- NOTE | 2019-05-08 16:42 | REP ---
Right foot four views: There is mild joint space narrowing of the great toe IP articulation. Mineralization and joint spaces otherwise are unremarkable. There are no calcifications or foreign bodies. There is no fracture or dislocation. Impression: Mild joint space narrowing of the great toe IP articulation, likely early osteoarthritis. Otherwise, negative right foot. Electronically Signed by Ben Almeida MD 05/08/2019 04:34 P
[2019-05-08] MEDS ORDERED: WARFARIN SOD 2.5 MG TAB PO SCH (17:00)
[2019-05-08] MEDS ORDERED: WARFARIN SOD 3 MG TAB PO SCH (17:00)
[2019-05-08 20:00] VITALS: BP 130/59
[2019-05-08] MEDS: SENNA 8.6 MG TAB (SENOKOT) PO SCH (20:15)
[2019-05-08] MEDS: LIDOCAINE 5% (LIDODERM) PATCH TD SCH (20:24)
[2019-05-09 05:52] VITALS: BP 138/58
[2019-05-09 06:02] VITALS: BP 138/58
[2019-05-09 07:24] LABS: INR 3.92; PROTHROMBIN TIME 38.5 SECONDS (11.8-14.0)
[2019-05-09] MEDS: PANTOPRAZOLE 40MG TAB (PROTONIX) PO SCH (08:26)
[2019-05-09] MEDS: FLUoxetine 20 MG CAP PO SCH (08:26)
[2019-05-09] MEDS: ASPIRIN 81 MG ENTERIC TAB PO SCH (08:26)
[2019-05-09] MEDS: MULTIVITAMINS/MINERALS THERAP 1 TAB PO SCH (08:26)
[2019-05-09] MEDS: THIAMINE 100 MG TAB PO SCH (08:26)
[2019-05-09] MEDS: OSELTAMIVIR PHOSPHATE 75 MG CAP (TAMIFLU) PO SCH (08:26)
[2019-05-09] MEDS: METOPROLOL SUCC *XL* 12.5MG PER 1/2 TAB (TopROL *XL*) PO SCH (08:27)
[2019-05-09] MEDS: GABAPENTIN 100 MG CAP PO SCH ×3 (08:27→21:01)
[2019-05-09] MEDS: FOLIC ACID 1 MG TAB PO SCH (08:27)
[2019-05-09] MEDS: ACETAMINOPHEN 500 MG TAB PO SCH ×3 (08:27→21:01)
[2019-05-09] MEDS: ATORVASTATIN 20 MG TAB PO SCH (08:28)
[2019-05-09] MEDS: VITAMIN D 1,000 INTERNATIONAL UNITS TABLET PO SCH (08:28)
[2019-05-09] MEDS: LIDOCAINE 4% CREAM 5GM (LMX4) TOP SCH ×2 (08:28→21:02)
[2019-05-09] MEDS: REMEDY PHYTOPLEX Z-GUARD PASTE 113GM TUBE (FROM STOREROOM PRODUCT) TOP SCH ×3 (08:29→21:03)
[2019-05-09] MEDS: DOCUSATE SODIUM 100 MG CAP PO SCH ×2 (08:29→21:01)
[2019-05-09] MEDS: **NOTE PATIENT COMMENT** MISC XX SCH (08:29)
--- NOTE | 2019-05-09 12:14 | IPNPDOC ---
PM&R Progress Note DATE OF SERVICE: May 09, 2019 Financial Institution Manager Progress Note Subjective: Patient reporting her right toe is improving on Gabapentin. She would like to try soaking her foot as well in Epsom salts. REVIEW OF SYSTEMS: The following is a completed review of systems and has been reviewed. Review of systems otherwise unremarkable. PAIN: Patient self reports no pain EYES: No recent vision changes EARS, NOSE, & THROAT: +dysphagia (improving) CARDIOVASCULAR: Denies chest pain or palpitations PULMONARY: Denies shortness of breath GASTROINTESTINAL: Denies constipation/diarrhea GENITOURINARY: denies dysuria MUSCULOSKELETAL: left sided paresis NEUROLOGICAL:left sided neglect and paresis HEMATOLOGICAL: denies easy bruising SKIN: intact PSYCHIATRIC: Unremarkable All other review of systems found to be negative. PHYSICAL EXAMINATION: VITAL SIGNS: Please see below. GENERAL: Pleasant and cooperative. No acute distress. left sided facial droop, +tongue deviation to the left HEENT: PERRL. Extraocular movements intact. Clear conjunctiva CARDIOVASCULAR: Regular rate and rhythm. No murmurs, rubs, or gallops LUNGS: Clear to auscultation bilaterally. No wheezes. No rhonchi ABDOMEN: Soft, nontender, nondistended. Positive bowel sounds. Normal active bowel sounds NEUROLOGICAL: Alert and oriented times three. Cranial nerves II through XII grossly intact. Sensation intact in RUE and RLE, patient has considerable neglect with decreased sensation left side EXTREMITIES: 5\5 strength right upper extremities. Left elbow flexor 2/3, elbow extensors 3/5, wrist extension 2/5, duck farmer 3/5 (patient able to do it once her attention is brought to left side) 5/5 strength right lower extremity. 4-/5 strength in left lower extremity. right 1st toe- mild ecchymosis at MTP joint, no warmth/swelling, TTP at the IP joint SKIN: intact ASSESSMENT:49-year-old F with past medical history of hld who presents status post right MCA infarct PLAN: 1. rehab- PT/OT advance gait and ADL training, dynamic balance, fall recovery- strengthen/stretch/maintain ROM all 4 limbs- ambulating without AD -mold chipper consult placed for left AFO -ELEVATED MOTORMAN for cognition and dysphagia- upgraded to level 3 and thins-requires supervision for all meals given impulsivity 2. Neuro: s/p right MCA infarct with left sided paresis -secondary stroke prevention- statin, ASA, BP management -Prozac for motor recovery -right ICA stenosis- f/u with neurosurgery in 3 months for possible procedure -for ETOH abuse management c/u thiamine, folic acid 3. cardiac: hx of HTN and recent NSTEMI, holding metoprolol due to soft BPs, c/u ASA- medicine consulted to assist in management -+LV thrombus on Warfarin, daily INRs goal 2-3, f/u with cardiology as outpatient top determine duration of treatment 4. Resp: monitor for infection, encourage incentive spirometer, influenza, s/p course of tamiflu patient denies any further fevers or respiratory symptoms -Duonebs prn given hx of smoking 5. GI ppx: protonix 6. DVT ppx: on coumadin 7. Pain: c/u tylneol to standing and c/u gabapentin, lidocaine cream to right 1st toe, lidoderm patch to left shoulder -foot Xray negative for fracture- 8. : UA negative 9. Dispo: 05-14-19 to home, progressing towards goals Allergies Coded Allergies: No Known Allergies (Unverified , 04/29/19) Vital Signs Vital Signs Date Time Temp Pulse Resp B/P (MAP) Pulse Ox O2 Delivery O2 Flow Rate FiO2 05/09/19 08:27 72 132/72 05/09/19 05:52 97.4 18 95 Room Air 05/04/19 21:30 1.0 Laboratory Data Labs 24H Laboratory Tests 2 05/09/19 06:21: Prothrombin Time 38.5H, Prothromb Time International Ratio 3.92 Microbiology Microbiology 05/04/19 Respiratory Virus Panel (PCR) ([facility]) - Final, Complete Influenza A H1-2009 05/04/19 Blood Culture - Final, Complete NO GROWTH AFTER 5 DAYS 05/04/19 Blood Culture - Final, Complete NO GROWTH AFTER 5 DAYS Current Medications Current Medications Current Medications Medications (Trade) Dose Ordered Sig/[place] Route PRN Reason Start Time Stop Time Status Last Admin Dose Admin Acetaminophen (Tylenol Tab) 650 mg Q4HP PRN PO fever/MILD PAIN (PS 1-4) 04/29/19 17:30 05/07/19 17:43 DC 05/06/19 20:58 Acetaminophen (Tylenol Tab) 1,000 mg TID PO 05/07/19 16:00 05/09/19 08:27 Albuterol/ Ipratropium (Duoneb (Ipr 0.5mg/Alb 2.5mg)) 3 ml RTID PRN NEB wheeze/SOB 04/30/19 13:00 Aspirin (Ecotrin) 81 mg DAILY PO 04/30/19 09:00 05/09/19 08:26 Atorvastatin Calcium (Lipitor) 80 mg DAILY PO 04/30/19 09:00 05/09/19 08:28 Diphenhydramine HCl (Benadryl Cream) wherever she has rash/itch BIDP PRN TOP ITCHING 04/29/19 17:30 Docusate Sodium (Colace) 100 mg BID PO 04/29/19 21:00 05/08/19 09:02 Fluoxetine HCl (PROzac) 20 mg DAILY PO 04/30/19 09:00 05/09/19 08:26 Folic Acid (Folic Acid) 1 mg DAILY PO 04/30/19 09:00 05/09/19 08:27 Gabapentin (Neurontin) 100 mg TID PO 05/08/19 16:00 05/09/19 08:27 Home Med (Med Rec Complete!) ASDIRECTED XX 04/29/19 18:15 04/29/19 18:14 DC Lidocaine (Lidoderm Patch) 1 patch QHS TD 05/07/19 21:00 05/08/19 20:24 Lidocaine HCl (Lmx 4/Anecream) 1 dose BID TOP 05/07/19 21:00 05/09/19 08:28 Magnesium Hydroxide (Milk Of Magnesia) 30 ml DAILYPRN PRN PO CONSTIPATION 04/29/19 17:30 Metoprolol Succinate (TopROL XL) 12.5 mg DAILY PO 05/08/19 09:00 05/09/19 08:27 Metoprolol Tartrate (Lopressor) 25 mg BID PO 04/29/19 21:00 05/06/19 10:13 DC 05/05/19 22:32 Multivitamins (Theragram-M) 1 tab DAILY PO 04/30/19 09:00 05/09/19 08:26 Non-Formulary Medication ( See Comment Field Below ) REMOVE LIDODERM PATCH DAILY@0900 XX 05/08/19 09:00 05/09/19 08:29 Oseltamivir Phosphate (Tamiflu) 75 mg BID PO 05/05/19 01:00 05/09/19 12:00 DC 05/09/19 08:26 Pantoprazole Sodium (Protonix) 40 mg DAILY PO 04/30/19 09:00 05/09/19 08:26 Senna (Senokot) 1 tab QHS PO 04/29/19 21:00 05/07/19 20:08 Thiamine HCl (Thiamine HCl) 100 mg DAILY PO 04/30/19 09:00 05/09/19 08:26 Vitamin D (Vitamin D) 2,000 units DAILY PO 04/30/19 09:00 05/09/19 08:28 Warfarin Sodium (Coumadin) 2 mg DAILY@17 PO 05/02/19 17:00 05/04/19 10:54 DC 05/03/19 17:06 Warfarin Sodium (Coumadin) 2.5 mg DAILY@17 PO 05/02/19 17:00 05/02/19 09:46 DC Warfarin Sodium (Coumadin) 2.5 mg DAILY@17 PO 05/04/19 17:00 05/06/19 07:45 DC 05/05/19 17:04 Warfarin Sodium (Coumadin) 2.5 mg DAILY@17 PO 05/08/19 17:00 05/08/19 16:32 DC Warfarin Sodium (Coumadin) 2.5 mg DAILY@17 PO 05/08/19 17:00 05/09/19 10:15 DC 05/08/19 16:37 Warfarin Sodium (Coumadin) 2.5 mg SuTuWeThSa@1700 PO 04/30/19 17:00 05/01/19 10:29 DC 04/30/19 17:53 Warfarin Sodium (Coumadin) 3 mg DAILY@17 PO 05/07/19 17:00 05/08/19 10:36 DC 05/07/19 17:16 Warfarin Sodium (Coumadin) 3.75 mg DAILY@17 PO 05/06/19 17:00 05/07/19 07:47 DC 05/06/19 18:01 Warfarin Sodium (Coumadin) 5 mg MoFr@1700 PO 04/29/19 17:00 05/01/19 10:29 DC 04/29/19 18:57 YEYO PAINTING MD May 09, 2019 12:14
[2019-05-09 14:00] VITALS: BP 130/74
[2019-05-09] MEDS: LIDOCAINE 5% (LIDODERM) PATCH TD SCH (20:55)
[2019-05-09] MEDS: MAGNESIUM SULFATE GRANULES(EPSOM SALT) 1LB TOP SCH (21:00)
[2019-05-09] MEDS: SENNA 8.6 MG TAB (SENOKOT) PO SCH (21:02)
[2019-05-09 21:37] VITALS: BP 128/67
[2019-05-10 05:36] VITALS: BP_SYST 114; BP_SYST 160; BP_DIAS 59; BP_DIAS 80
[2019-05-10 09:46] LABS: INR 2.9; PROTHROMBIN TIME 30.2 SECONDS (11.8-14.0)
[2019-05-10] MEDS: FOLIC ACID 1 MG TAB PO SCH (09:52)
[2019-05-10] MEDS: MULTIVITAMINS/MINERALS THERAP 1 TAB PO SCH (09:52)
[2019-05-10] MEDS: GABAPENTIN 100 MG CAP PO SCH ×3 (09:53→21:45)
[2019-05-10] MEDS: PANTOPRAZOLE 40MG TAB (PROTONIX) PO SCH (09:53)
[2019-05-10] MEDS: FLUoxetine 20 MG CAP PO SCH (09:53)
[2019-05-10] MEDS: THIAMINE 100 MG TAB PO SCH (09:53)
[2019-05-10] MEDS: ASPIRIN 81 MG ENTERIC TAB PO SCH (09:53)
[2019-05-10] MEDS: ATORVASTATIN 20 MG TAB PO SCH (09:53)
[2019-05-10] MEDS: ACETAMINOPHEN 500 MG TAB PO SCH ×3 (09:53→21:45)
[2019-05-10] MEDS: DOCUSATE SODIUM 100 MG CAP PO SCH ×2 (09:53→21:00)
[2019-05-10] MEDS: VITAMIN D 1,000 INTERNATIONAL UNITS TABLET PO SCH (09:53)
[2019-05-10] MEDS: LIDOCAINE 4% CREAM 5GM (LMX4) TOP SCH ×2 (09:54→21:46)
[2019-05-10] MEDS: METOPROLOL SUCC *XL* 12.5MG PER 1/2 TAB (TopROL *XL*) PO SCH (09:54)
[2019-05-10] MEDS: **NOTE PATIENT COMMENT** MISC XX SCH (09:56)
[2019-05-10] MEDS: REMEDY PHYTOPLEX Z-GUARD PASTE 113GM TUBE (FROM STOREROOM PRODUCT) TOP SCH ×3 (09:56→21:00)
--- NOTE | 2019-05-10 11:48 | IPNPDOC ---
PM&R Progress Note DATE OF SERVICE: May 10, 2019 Sustainable Development Policy Analyst Progress Note Subjective: Patient reporting she is feeling well and is able to feed herself with her left hand with weighted utensils. REVIEW OF SYSTEMS: The following is a completed review of systems and has been reviewed. Review of systems otherwise unremarkable. PAIN: Patient self reports no pain EYES: No recent vision changes EARS, NOSE, & THROAT: +dysphagia (improving) CARDIOVASCULAR: Denies chest pain or palpitations PULMONARY: Denies shortness of breath GASTROINTESTINAL: Denies constipation/diarrhea GENITOURINARY: denies dysuria MUSCULOSKELETAL: left sided paresis NEUROLOGICAL:left sided neglect and paresis HEMATOLOGICAL: denies easy bruising SKIN: intact PSYCHIATRIC: Unremarkable All other review of systems found to be negative. PHYSICAL EXAMINATION: VITAL SIGNS: Please see below. GENERAL: Pleasant and cooperative. No acute distress. left sided facial droop, +tongue deviation to the left HEENT: PERRL. Extraocular movements intact. Clear conjunctiva CARDIOVASCULAR: Regular rate and rhythm. No murmurs, rubs, or gallops LUNGS: Clear to auscultation bilaterally. No wheezes. No rhonchi ABDOMEN: Soft, nontender, nondistended. Positive bowel sounds. Normal active bowel sounds NEUROLOGICAL: Alert and oriented times three. Cranial nerves II through XII grossly intact. Sensation intact in RUE and RLE, patient has considerable neglect with decreased sensation left side EXTREMITIES: 5\5 strength right upper extremities. Left elbow flexor 2/3, elbow extensors 3/5, wrist extension 2/5, lead blender 3/5 (patient able to do it once her attention is brought to left side) 5/5 strength right lower extremity. 4-/5 strength in left lower extremity. right 1st toe- mild ecchymosis at MTP joint, no warmth/swelling, TTP at the IP joint SKIN: intact ASSESSMENT:49-year-old F with past medical history of hld who presents status post right MCA infarct PLAN: 1. rehab- PT/OT advance gait and ADL training, dynamic balance, fall recovery- strengthen/stretch/maintain ROM all 4 limbs- ambulating without AD -carbon paper coating machine setter consult placed for left AFO -MOTOR GENERATOR SET OPERATOR for cognition and dysphagia- upgraded to level 3 and thins-requires supervision for all meals given impulsivity 2. Neuro: s/p right MCA infarct with left sided paresis -secondary stroke prevention- statin, ASA, BP management -Prozac for motor recovery -right ICA stenosis- f/u with neurosurgery in 3 months for possible procedure -for ETOH abuse management c/u thiamine, folic acid 3. cardiac: hx of HTN and recent NSTEMI, added back metoprolol, soft BPs resolved, c/u ASA- medicine consulted to assist in management -+LV thrombus on Warfarin, daily INRs goal 2-3, f/u with cardiology as outpatient top determine duration of treatment 4. Resp: monitor for infection, encourage incentive spirometer, influenza, s/p course of tamiflu patient denies any further fevers or respiratory symptoms -Duonebs prn given hx of smoking 5. GI ppx: Protonix 6. DVT ppx: on coumadin 7. Pain: c/u Tylenol to standing and c/u gabapentin, lidocaine cream to right 1st toe, lidoderm patch to left shoulder -foot Xray negative for fracture- 8. : repeat UA +LE, will await Ucx 9. Dispo: 05-14-19 to home, progressing towards goals Allergies Coded Allergies: No Known Allergies (Unverified , 04/29/19) Vital Signs Vital Signs Date Time Temp Pulse Resp B/P (MAP) Pulse Ox O2 Delivery O2 Flow Rate FiO2 05/10/19 09:54 89 160/80 05/10/19 05:36 97.8 18 97 Room Air 05/04/19 21:30 1.0 Laboratory Data Labs 24H Laboratory Tests 2 05/10/19 05:59: Urine Color YELLOW, Urine Appearance HAZY, Urine pH 6.0, Urine Specific [place] 1.017, Urine Protein 1+H, Urine Glucose (UA) NEGATIVE, Urine Ketones NEGATIVE, Urine Blood NEGATIVE, Urine Nitrite NEGATIVE, Urine Bilirubin NEGATIVE, Urine Urobilinogen 0.2, Urine Leukocyte Esterase 3+H, Urine WBC (Auto) TNTCH, Urine RBC (Auto) 8H, Urine Hyaline Casts (Auto) 0, Urine Bacteria (Auto) 2+H, Urine Squamous Epithelial Cells 2, Urine Mucus (Auto) SMALL, Urine Sperm (Auto) 05/10/19 09:01: Prothrombin Time 30.2H, Prothromb Time International Ratio 2.90 Microbiology Microbiology 05/10/19 Urine Culture, Received Pending 05/04/19 Respiratory Virus Panel (PCR) ([facility]) - Final, Complete Influenza A H1-2009 2/22/20 Blood Culture - Final, Complete NO GROWTH AFTER 5 DAYS 05/04/19 Blood Culture - Final, Complete NO GROWTH AFTER 5 DAYS Current Medications Current Medications Current Medications Medications (Trade) Dose Ordered Sig/[place] Route PRN Reason Start Time Stop Time Status Last Admin Dose Admin Acetaminophen (Tylenol Tab) 650 mg Q4HP PRN PO fever/MILD PAIN (PS 1-4) 04/29/19 17:30 05/07/19 17:43 DC 05/06/19 20:58 Acetaminophen (Tylenol Tab) 1,000 mg TID PO 05/07/19 16:00 05/10/19 09:53 Albuterol/ Ipratropium (Duoneb (Ipr 0.5mg/Alb 2.5mg)) 3 ml RTID PRN NEB wheeze/SOB 04/30/19 13:00 Aspirin (Ecotrin) 81 mg DAILY PO 04/30/19 09:00 05/10/19 09:53 Atorvastatin Calcium (Lipitor) 80 mg DAILY PO 04/30/19 09:00 05/10/19 09:53 Diphenhydramine HCl (Benadryl Cream) wherever she has rash/itch BIDP PRN TOP ITCHING 04/29/19 17:30 Docusate Sodium (Colace) 100 mg BID PO 04/29/19 21:00 05/10/19 09:53 Fluoxetine HCl (PROzac) 20 mg DAILY PO 04/30/19 09:00 05/10/19 09:53 Folic Acid (Folic Acid) 1 mg DAILY PO 04/30/19 09:00 05/10/19 09:52 Gabapentin (Neurontin) 100 mg TID PO 05/08/19 16:00 05/10/19 09:53 Home Med (Med Rec Complete!) ASDIRECTED XX 04/29/19 18:15 04/29/19 18:14 DC Lidocaine (Lidoderm Patch) 1 patch QHS TD 05/07/19 21:00 05/09/19 20:55 Lidocaine HCl (Lmx 4/Anecream) 1 dose BID TOP 05/07/19 21:00 05/10/19 09:54 Magnesium Hydroxide (Milk Of Magnesia) 30 ml DAILYPRN PRN PO CONSTIPATION 04/29/19 17:30 Magnesium Sulfate (Epsom Salt) soak right foot in lukew... QHS TOP 05/09/19 21:00 Metoprolol Succinate (TopROL XL) 12.5 mg DAILY PO 05/08/19 09:00 05/10/19 10:58 DC 05/10/19 09:54 Metoprolol Succinate (TopROL XL) 25 mg DAILY PO 05/11/19 09:00 Metoprolol Tartrate (Lopressor) 25 mg BID PO 04/29/19 21:00 05/06/19 10:13 DC 05/05/19 22:32 Multivitamins (Theragram-M) 1 tab DAILY PO 04/30/19 09:00 05/10/19 09:52 Non-Formulary Medication ( See Comment Field Below ) REMOVE LIDODERM PATCH DAILY@0900 XX 05/08/19 09:00 05/10/19 09:56 Oseltamivir Phosphate (Tamiflu) 75 mg BID PO 05/05/19 01:00 05/09/19 12:00 DC 05/09/19 08:26 Pantoprazole Sodium (Protonix) 40 mg DAILY PO 04/30/19 09:00 05/10/19 09:53 Senna (Senokot) 1 tab QHS PO 04/29/19 21:00 05/09/19 21:02 Thiamine HCl (Thiamine HCl) 100 mg DAILY PO 04/30/19 09:00 05/10/19 09:53 Vitamin D (Vitamin D) 2,000 units DAILY PO 04/30/19 09:00 05/10/19 09:53 Warfarin Sodium (Coumadin) 2 mg DAILY@17 PO 05/02/19 17:00 05/04/19 10:54 DC 05/03/19 17:06 Warfarin Sodium (Coumadin) 2.5 mg DAILY@17 PO 05/02/19 17:00 05/02/19 09:46 DC Warfarin Sodium (Coumadin) 2.5 mg DAILY@17 PO 05/04/19 17:00 05/06/19 07:45 DC 05/05/19 17:04 Warfarin Sodium (Coumadin) 2.5 mg DAILY@17 PO 05/08/19 17:00 05/08/19 16:32 DC Warfarin Sodium (Coumadin) 2.5 mg DAILY@17 PO 05/08/19 17:00 05/09/19 10:15 DC 05/08/19 16:37 Warfarin Sodium (Coumadin) 2.5 mg DAILY@17 PO 05/11/19 17:00 Warfarin Sodium (Coumadin) 2.5 mg SuTuWeThSa@1700 PO 04/30/19 17:00 05/01/19 10:29 DC 04/30/19 17:53 Warfarin Sodium (Coumadin) 3 mg DAILY@17 PO 05/07/19 17:00 05/08/19 10:36 DC 05/07/19 17:16 Warfarin Sodium (Coumadin) 3.75 mg DAILY@17 PO 05/06/19 17:00 05/07/19 07:47 DC 05/06/19 18:01 Warfarin Sodium (Coumadin) 5 mg MoFr@1700 PO 04/29/19 17:00 05/01/19 10:29 DC 04/29/19 18:57 YEYO PAINTING MD May 10, 2019 11:48
[2019-05-10 14:00] VITALS: BP 159/82
[2019-05-10] MEDS ORDERED: WARFARIN SOD 1 MG TAB PO ONE (17:00)
[2019-05-10 19:46] VITALS: BP 110/50
[2019-05-10] MEDS: SENNA 8.6 MG TAB (SENOKOT) PO SCH (21:00)
[2019-05-10] MEDS: LIDOCAINE 5% (LIDODERM) PATCH TD SCH (21:44)
[2019-05-10] MEDS: MAGNESIUM SULFATE GRANULES(EPSOM SALT) 1LB TOP SCH (21:45)
[2019-05-11 06:00] VITALS: BP 141/77
[2019-05-11 08:02] LABS: INR 2.76; PROTHROMBIN TIME 29.1 SECONDS (11.8-14.0)
[2019-05-11] MEDS: GABAPENTIN 100 MG CAP PO SCH ×3 (08:38→20:08)
[2019-05-11] MEDS: FLUoxetine 20 MG CAP PO SCH (08:38)
[2019-05-11] MEDS: PANTOPRAZOLE 40MG TAB (PROTONIX) PO SCH (08:39)
[2019-05-11] MEDS: ATORVASTATIN 20 MG TAB PO SCH (08:39)
[2019-05-11] MEDS: ACETAMINOPHEN 500 MG TAB PO SCH ×3 (08:39→20:09)
[2019-05-11] MEDS: FOLIC ACID 1 MG TAB PO SCH (08:39)
[2019-05-11] MEDS: ASPIRIN 81 MG ENTERIC TAB PO SCH (08:39)
[2019-05-11] MEDS: THIAMINE 100 MG TAB PO SCH (08:39)
[2019-05-11] MEDS: VITAMIN D 1,000 INTERNATIONAL UNITS TABLET PO SCH (08:39)
[2019-05-11] MEDS: METOPROLOL SUCC *XL* 25MG TAB (TopROL *XL*) PO SCH (08:39)
[2019-05-11] MEDS: MULTIVITAMINS/MINERALS THERAP 1 TAB PO SCH (08:39)
[2019-05-11] MEDS: DOCUSATE SODIUM 100 MG CAP PO SCH ×2 (08:40→20:10)
[2019-05-11] MEDS: REMEDY PHYTOPLEX Z-GUARD PASTE 113GM TUBE (FROM STOREROOM PRODUCT) TOP SCH ×3 (09:00→20:10)
[2019-05-11] MEDS: **NOTE PATIENT COMMENT** MISC XX SCH (09:00)
[2019-05-11] MEDS: LIDOCAINE 4% CREAM 5GM (LMX4) TOP SCH ×2 (09:00→20:10)
[2019-05-11 13:55] VITALS: BP 114/55
[2019-05-11] MEDS: WARFARIN SOD 2.5 MG TAB PO SCH (17:50)
[2019-05-11 20:00] VITALS: BP 139/65
[2019-05-11] MEDS: LIDOCAINE 5% (LIDODERM) PATCH TD SCH (20:09)
[2019-05-11] MEDS: SENNA 8.6 MG TAB (SENOKOT) PO SCH (20:10)
[2019-05-11] MEDS: MAGNESIUM SULFATE GRANULES(EPSOM SALT) 1LB TOP SCH (20:10)
[2019-05-12 06:00] VITALS: BP_SYST 131; BP_SYST 139; BP_DIAS 61; BP_DIAS 63
[2019-05-12 07:05] LABS: INR 2.96; PROTHROMBIN TIME 30.8 SECONDS (11.8-14.0)
[2019-05-12 08:00] VITALS: BP 127/59
[2019-05-12] MEDS: THIAMINE 100 MG TAB PO SCH (08:04)
[2019-05-12] MEDS: FOLIC ACID 1 MG TAB PO SCH (08:04)
[2019-05-12] MEDS: VITAMIN D 1,000 INTERNATIONAL UNITS TABLET PO SCH (08:04)
[2019-05-12] MEDS: ATORVASTATIN 20 MG TAB PO SCH (08:04)
[2019-05-12] MEDS: GABAPENTIN 100 MG CAP PO SCH ×3 (08:04→20:47)
[2019-05-12] MEDS: MULTIVITAMINS/MINERALS THERAP 1 TAB PO SCH (08:04)
[2019-05-12] MEDS: METOPROLOL SUCC *XL* 25MG TAB (TopROL *XL*) PO SCH (08:05)
[2019-05-12] MEDS: ACETAMINOPHEN 500 MG TAB PO SCH ×3 (08:05→20:48)
[2019-05-12] MEDS: FLUoxetine 20 MG CAP PO SCH (08:05)
[2019-05-12] MEDS: PANTOPRAZOLE 40MG TAB (PROTONIX) PO SCH (08:05)
[2019-05-12] MEDS: ASPIRIN 81 MG ENTERIC TAB PO SCH (08:05)
[2019-05-12] MEDS: LIDOCAINE 4% CREAM 5GM (LMX4) TOP SCH ×2 (08:06→20:50)
[2019-05-12] MEDS: **NOTE PATIENT COMMENT** MISC XX SCH (08:06)
[2019-05-12] MEDS: DOCUSATE SODIUM 100 MG CAP PO SCH ×2 (09:00→20:21)
[2019-05-12] MEDS: REMEDY PHYTOPLEX Z-GUARD PASTE 113GM TUBE (FROM STOREROOM PRODUCT) TOP SCH ×3 (09:00→20:22)
[2019-05-12 14:00] VITALS: BP 112/58
[2019-05-12] MEDS: WARFARIN SOD 2.5 MG TAB PO SCH (16:17)
[2019-05-12 20:00] VITALS: BP 128/59
[2019-05-12] MEDS: SENNA 8.6 MG TAB (SENOKOT) PO SCH (20:22)
[2019-05-12] MEDS: LIDOCAINE 5% (LIDODERM) PATCH TD SCH (20:47)
[2019-05-12] MEDS: MAGNESIUM SULFATE GRANULES(EPSOM SALT) 1LB TOP SCH (20:48)
[2019-05-13 06:00] VITALS: BP 123/71
[2019-05-13 06:34] LABS: BASO % 0.2 % (0.0-1.0); EOS # 0.3 10^3/uL (0.0-0.5); EOS % 2.5 % (0.0-3.0); HEMATOCRIT 37.6 % (36.0-47.0); HEMOGLOBIN 12.1 g/dl (12.0-15.5); LYMPH # 3.4 10^3/uL (1.5-5.0); LYMPH % 27.1 % (24.0-44.0); MEAN CORPUSCULAR HEMOGLOBIN 28.1 pg (27.0-33.0); MEAN CORPUSCULAR HGB CONC 32.2 g/dl (32.0-36.5); MEAN CORPUSCULAR VOLUME 87.4 fl (80.0-96.0); MONO # 0.8 10^3/uL (0.0-0.8); MONO % 6.1 % (0.0-5.0); NEUTROPHILS # 7.9 10^3/uL (1.5-8.5); NEUTROPHILS % 63.5 % (36.0-66.0); PLATELET COUNT, AUTOMATED 282 10^3/uL (150-450); WHITE BLOOD COUNT 12.4 10^3/uL (4.0-10.0)
[2019-05-13 06:45] LABS: INR 3.29; PROTHROMBIN TIME 33.4 SECONDS (11.8-14.0)
[2019-05-13 06:56] LABS: BLOOD UREA NITROGEN 6 MG/DL (7-18); CALCIUM LEVEL 8.6 MG/DL (8.5-10.1); CARBON DIOXIDE LEVEL 29 MEQ/L (21-32); CHLORIDE LEVEL 107 MEQ/L (98-107); CREATININE FOR GFR 0.66 MG/DL (0.55-1.30); GLOMERULAR FILTRATION RATE > 60.0 (>58); GLUCOSE, FASTING 94 MG/DL (70-100); POTASSIUM SERUM 4.2 MEQ/L (3.5-5.1); SODIUM LEVEL 139 MEQ/L (136-145)
[2019-05-13] MEDS: DOCUSATE SODIUM 100 MG CAP PO SCH ×2 (09:00→20:04)
[2019-05-13] MEDS: REMEDY PHYTOPLEX Z-GUARD PASTE 113GM TUBE (FROM STOREROOM PRODUCT) TOP SCH ×3 (09:00→20:04)
[2019-05-13] MEDS: MULTIVITAMINS/MINERALS THERAP 1 TAB PO SCH (09:15)
[2019-05-13] MEDS: FLUoxetine 20 MG CAP PO SCH (09:15)
[2019-05-13] MEDS: VITAMIN D 1,000 INTERNATIONAL UNITS TABLET PO SCH (09:15)
[2019-05-13] MEDS: ACETAMINOPHEN 500 MG TAB PO SCH ×3 (09:15→21:55)
[2019-05-13] MEDS: PANTOPRAZOLE 40MG TAB (PROTONIX) PO SCH (09:16)
[2019-05-13] MEDS: THIAMINE 100 MG TAB PO SCH (09:16)
[2019-05-13] MEDS: ASPIRIN 81 MG ENTERIC TAB PO SCH (09:16)
[2019-05-13] MEDS: ATORVASTATIN 20 MG TAB PO SCH (09:16)
[2019-05-13] MEDS: FOLIC ACID 1 MG TAB PO SCH (09:16)
[2019-05-13] MEDS: GABAPENTIN 100 MG CAP PO SCH ×3 (09:16→20:01)
[2019-05-13] MEDS: METOPROLOL SUCC *XL* 25MG TAB (TopROL *XL*) PO SCH (09:16)
[2019-05-13] MEDS: LIDOCAINE 4% CREAM 5GM (LMX4) TOP SCH ×2 (09:17→20:01)
[2019-05-13] MEDS: **NOTE PATIENT COMMENT** MISC XX SCH (09:21)
[2019-05-13] MEDS ORDERED: PANT40TA3 PO (10:30)
[2019-05-13] MEDS ORDERED: THIA100TA PO (10:30)
[2019-05-13] MEDS ORDERED: FOLI1TAB11 PO (10:30)
[2019-05-13] MEDS ORDERED: METO1TAB32 PO (10:30)
[2019-05-13] MEDS ORDERED: GABA-1171 PO (10:30)
[2019-05-13] MEDS ORDERED: VITAD1000T PO (10:30)
[2019-05-13] MEDS ORDERED: FLUO20CA22 PO (10:30)
[2019-05-13] MEDS ORDERED: ASPI81TAEC PO (10:30)
[2019-05-13] MEDS ORDERED: LEVO250T12 PO (10:30)
[2019-05-13] MEDS ORDERED: ATOR1TAB21 PO (10:30)
[2019-05-13] MEDS ORDERED: COUM2TAB22 PO (10:30)
[2019-05-13] MEDS: LevoFLOXacin 250 MG TABLET PO SCH (12:02)
[2019-05-13] MEDS: LACTOBACILLUS ACIDOPHILUS CAP (BACID) PO SCH ×3 (12:02→20:01)
[2019-05-13 14:00] VITALS: BP 111/56
--- NOTE | 2019-05-13 14:51 | IPNPDOC ---
PM&R Progress Note DATE OF SERVICE: May 13, 2019 Ore Grader Progress Note Subjective: Patient reporting she is ready to go home tomorrow and understands that she will need to go to the hospital lab 3 times a week for her INR. REVIEW OF SYSTEMS: The following is a completed review of systems and has been reviewed. Review of systems otherwise unremarkable. PAIN: Patient self reports no pain EYES: No recent vision changes EARS, NOSE, & THROAT: +dysphagia (improving) CARDIOVASCULAR: Denies chest pain or palpitations PULMONARY: Denies shortness of breath GASTROINTESTINAL: Denies constipation/diarrhea GENITOURINARY: denies dysuria MUSCULOSKELETAL: left sided paresis NEUROLOGICAL:left sided neglect and paresis HEMATOLOGICAL: denies easy bruising SKIN: intact PSYCHIATRIC: Unremarkable All other review of systems found to be negative. PHYSICAL EXAMINATION: VITAL SIGNS: Please see below. GENERAL: Pleasant and cooperative. No acute distress. left sided facial droop, +tongue deviation to the left HEENT: PERRL. Extraocular movements intact. Clear conjunctiva CARDIOVASCULAR: Regular rate and rhythm. No murmurs, rubs, or gallops LUNGS: Clear to auscultation bilaterally. No wheezes. No rhonchi ABDOMEN: Soft, nontender, nondistended. Positive bowel sounds. Normal active bowel sounds NEUROLOGICAL: Alert and oriented times three. Cranial nerves II through XII grossly intact. Sensation intact in RUE and RLE, patient has considerable n eglect with decreased sensation left side EXTREMITIES: 5\5 strength right upper extremities. Left elbow flexor 2/3, elbow extensors 3/5, wrist extension 2/5, lubrication servicer 3/5 (patient able to do it once her a ttention is brought to left side) 5/5 strength right lower extremity. 4-/5 strength in left lower extremity. right 1st toe- mild ecchymosis at MTP joint, no warmth/swelling, TTP at the IP joint SKIN: intact ASSESSMENT:49-year-old F with past medical history of hld who presents status post right MCA infarct PLAN: 1. rehab- PT/OT advance gait and ADL training, dynamic balance, fall recovery- strengthen/stretch/maintain ROM all 4 limbs- ambulating without AD -dedicated owner operator consult placed for left AFO -CAR REFINISHER for cognition and dysphagia- upgraded to level 3 and thins-requires supervision for all meals given impulsivity 2. Neuro: s/p right MCA infarct with left sided paresis -secondary stroke prevention- statin, ASA, BP management -Prozac for motor recovery -right ICA stenosis- f/u with neurosurgery in 3 months for possible procedure -for ETOH abuse management c/u thiamine, folic acid 3. cardiac: hx of HTN and recent NSTEMI, added back metoprolol, soft BPs resolved, c/u ASA- medicine consulted to assist in management -+LV thrombus on Warfarin, daily INRs goal 2-3, f/u with cardiology as o utpatient to determine duration of treatment 4. Resp: monitor for infection, encourage incentive spirometer, influenza, s/p course of tamiflu patient denies any further fevers or respiratory symptoms -Duonebs prn given hx of smoking 5. GI ppx: Protonix 6. DVT ppx: on coumadin 7. Pain: c/u Tylenol to standing and c/u gabapentin, lidocaine cream to right 1st toe, lidoderm patch to left shoulder -foot Xray negative for fracture- 8. : repeat Ucx positive for morganella- c/u 3-day course of levaquin 9. Dispo: 05-14-19 to home, progressing towards goals Allergies Coded Allergies: No Known Allergies (Unverified , 04/29/19) Vital Signs Vital Signs Date Time Temp Pulse Resp B/P (MAP) Pulse Ox O2 Delivery O2 Flow Rate FiO2 05/13/19 14:00 96.9 66 16 111/56 (74) 99 Room Air Laboratory Data CBC/BMP Laboratory Tests 05/13/19 06:00 Labs 24H Laboratory Tests 2 05/13/19 06:00: Immature Granulocyte % (Auto) 0.6, Neutrophils (%) (Auto) 63.5, Lymphocytes (%) (Auto) 27.1, Monocytes (%) (Auto) 6.1H, Eosinophils (%) (Auto) 2.5, Basophils (%) (Auto) 0.2, Neutrophils # (Auto) 7.9, Lymphocytes # (Auto) 3.4, Monocytes # (Auto) 0.8, Eosinophils # (Auto) 0.3, Basophils # (Auto) 0.0, Nucleated Red Blood Cells % (auto) 0.0, Prothrombin Time 33.4H, Prothromb Time International Ratio 3.29, Anion Gap 3L, Glomerular Filtration Rate > 60.0, Calcium Level 8.6 Microbiology Microbiology 2/28/20 Urine Culture - Final, Complete Morganella Morganii [facility] [place] 05/04/19 Respiratory Virus Panel (PCR) ([facility]) - Final, Complete Influenza A H1-2009 05/04/19 Blood Culture - Final, Complete NO GROWTH AFTER 5 DAYS 05/04/19 Blood Culture - Final, Complete NO GROWTH AFTER 5 DAYS Current Medications Current Medications Current Medications Medications (Trade) Dose Ordered Sig/[place] Route PRN Reason Start Time Stop Time Status Last Admin Dose Admin Acetaminophen (Tylenol Tab) 650 mg Q4HP PRN PO fever/MILD PAIN (PS 1-4) 04/29/19 17:30 05/07/19 17:43 DC 05/06/19 20:58 Acetaminophen (Tylenol Tab) 1,000 mg TID PO 05/07/19 16:00 05/13/19 09:15 Albuterol/ Ipratropium (Duoneb (Ipr 0.5mg/Alb 2.5mg)) 3 ml RTID PRN NEB wheeze/SOB 04/30/19 13:00 Aspirin (Ecotrin) 81 mg DAILY PO 04/30/19 09:00 05/13/19 09:16 Atorvastatin Calcium (Lipitor) 80 mg DAILY PO 04/30/19 09:00 05/13/19 09:16 Diphenhydramine HCl (Benadryl Cream) wherever she has rash/itch BIDP PRN TOP ITCHING 04/29/19 17:30 Docusate Sodium (Colace) 100 mg BID PO 04/29/19 21:00 05/10/19 09:53 Fluoxetine HCl (PROzac) 20 mg DAILY PO 04/30/19 09:00 05/13/19 09:15 Folic Acid (Folic Acid) 1 mg DAILY PO 04/30/19 09:00 05/13/19 09:16 Gabapentin (Neurontin) 100 mg TID PO 05/08/19 16:00 05/13/19 09:16 Home Med (Med Rec Complete!) ASDIRECTED XX 04/29/19 18:15 04/29/19 18:14 DC Lactobacillus Acidophilus (Bacid) 1 ea TID PO 05/13/19 09:00 05/13/19 12:02 Levofloxacin (Levaquin) 250 mg DAILY@06 PO 05/13/19 10:30 05/15/19 06:01 05/13/19 12:02 Lidocaine (Lidoderm Patch) 1 patch QHS TD 05/07/19 21:00 05/12/19 20:47 Lidocaine HCl (Lmx 4/Anecream) 1 dose BID TOP 05/07/19 21:00 05/13/19 09:17 Magnesium Hydroxide (Milk Of Magnesia) 30 ml DAILYPRN PRN PO CONSTIPATION 04/29/19 17:30 Magnesium Sulfate (Epsom Salt) soak right foot in lukew... QHS TOP 05/09/19 21:00 05/11/19 20:10 Metoprolol Succinate (TopROL XL) 12.5 mg DAILY PO 05/08/19 09:00 05/10/19 10:58 DC 05/10/19 09:54 Metoprolol Succinate (TopROL XL) 25 mg DAILY PO 05/11/19 09:00 05/13/19 09:16 Metoprolol Tartrate (Lopressor) 25 mg BID PO 04/29/19 21:00 05/06/19 10:13 DC 05/05/19 22:32 Multivitamins (Theragram-M) 1 tab DAILY PO 04/30/19 09:00 05/13/19 09:15 Non-Formulary Medication ( See Comment Field Below ) REMOVE LIDODERM PATCH DAILY@0900 XX 05/08/19 09:00 05/13/19 09:21 Oseltamivir Phosphate (Tamiflu) 75 mg BID PO 05/05/19 01:00 05/09/19 12:00 DC 05/09/19 08:26 Pantoprazole Sodium (Protonix) 40 mg DAILY PO 04/30/19 09:00 05/13/19 09:16 Senna (Senokot) 1 tab QHS PO 04/29/19 21:00 05/09/19 21:02 Thiamine HCl (Thiamine HCl) 100 mg DAILY PO 04/30/19 09:00 05/13/19 09:16 Vitamin D (Vitamin D) 2,000 units DAILY PO 04/30/19 09:00 05/13/19 09:15 Warfarin Sodium (Coumadin) 2 mg DAILY@17 PO 05/02/19 17:00 05/04/19 10:54 DC 05/03/19 17:06 Warfarin Sodium (Coumadin) 2 mg DAILY@17 PO 05/14/19 17:00 Warfarin Sodium (Coumadin) 2.5 mg DAILY@17 PO 05/02/19 17:00 05/02/19 09:46 DC Warfarin Sodium (Coumadin) 2.5 mg DAILY@17 PO 05/04/19 17:00 05/06/19 07:45 DC 05/05/19 17:04 Warfarin Sodium (Coumadin) 2.5 mg DAILY@17 PO 05/08/19 17:00 05/08/19 16:32 DC Warfarin Sodium (Coumadin) 2.5 mg DAILY@17 PO 05/08/19 17:00 05/09/19 10:15 DC 05/08/19 16:37 Warfarin Sodium (Coumadin) 2.5 mg DAILY@17 PO 05/11/19 17:00 05/13/19 10:20 DC 05/12/19 16:17 Warfarin Sodium (Coumadin) 2.5 mg SuTuWeThSa@1700 PO 04/30/19 17:00 05/01/19 10:29 DC 04/30/19 17:53 Warfarin Sodium (Coumadin) 3 mg DAILY@17 PO 05/07/19 17:00 05/08/19 10:36 DC 05/07/19 17:16 Warfarin Sodium (Coumadin) 3.75 mg DAILY@17 PO 05/06/19 17:00 05/07/19 07:47 DC 05/06/19 18:01 Warfarin Sodium (Coumadin) 5 mg MoFr@1700 PO 04/29/19 17:00 05/01/19 10:29 DC 04/29/19 18:57 YEYO PAINTING MD May 13, 2019 14:51
[2019-05-13 20:00] VITALS: BP 130/60
[2019-05-13] MEDS: LIDOCAINE 5% (LIDODERM) PATCH TD SCH (20:01)
[2019-05-13] MEDS: SENNA 8.6 MG TAB (SENOKOT) PO SCH (20:04)
[2019-05-13] MEDS: MAGNESIUM SULFATE GRANULES(EPSOM SALT) 1LB TOP SCH (20:04)
[2019-05-14] MEDS: LevoFLOXacin 250 MG TABLET PO SCH (05:48)
[2019-05-14 06:00] VITALS: BP 142/64
[2019-05-14 07:13] LABS: INR 2.63
[2019-05-14 08:20] VITALS: BP 142/64
[2019-05-14] MEDS: DOCUSATE SODIUM 100 MG CAP PO SCH (08:20)
[2019-05-14] MEDS: FOLIC ACID 1 MG TAB PO SCH (08:20)
[2019-05-14] MEDS: FLUoxetine 20 MG CAP PO SCH (08:20)
[2019-05-14] MEDS: THIAMINE 100 MG TAB PO SCH (08:20)
[2019-05-14] MEDS: ASPIRIN 81 MG ENTERIC TAB PO SCH (08:20)
[2019-05-14] MEDS: METOPROLOL SUCC *XL* 25MG TAB (TopROL *XL*) PO SCH (08:20)
[2019-05-14] MEDS: PANTOPRAZOLE 40MG TAB (PROTONIX) PO SCH (08:20)
[2019-05-14] MEDS: GABAPENTIN 100 MG CAP PO SCH (08:20)
[2019-05-14] MEDS: MULTIVITAMINS/MINERALS THERAP 1 TAB PO SCH (08:20)
[2019-05-14] MEDS: REMEDY PHYTOPLEX Z-GUARD PASTE 113GM TUBE (FROM STOREROOM PRODUCT) TOP SCH (08:21)
[2019-05-14] MEDS: LIDOCAINE 4% CREAM 5GM (LMX4) TOP SCH (08:21)
[2019-05-14] MEDS: ATORVASTATIN 20 MG TAB PO SCH (08:21)
[2019-05-14] MEDS: **NOTE PATIENT COMMENT** MISC XX SCH (08:21)
[2019-05-14] MEDS: LACTOBACILLUS ACIDOPHILUS CAP (BACID) PO SCH (08:21)
[2019-05-14] MEDS: VITAMIN D 1,000 INTERNATIONAL UNITS TABLET PO SCH (08:24)
[2019-05-14] MEDS: ACETAMINOPHEN 500 MG TAB PO SCH (08:24)
[2019-05-14] MEDS ORDERED: WARFARIN SOD 2 MG TAB PO SCH (17:00)
--- NOTE | 2019-05-28 20:43 | PMRDS ---
DATE OF ADMISSION: 04/29/2019 DATE OF DISCHARGE: 05/14/2019 CHIEF COMPLAINT/DISCHARGE DIAGNOSIS: Stroke. HISTORY OF PRESENT ILLNESS: 49-year-old female with a past medical history of hypertension, ETOH abuse, smoking, hypertension, right axilla wound who presented to [facility] 04/11/2019 with left sided weakness and rightward gaze palsy with dysarthria where she was admitted to the stroke service, outside of the tPA window. MRI on 04/12/2019 showed, Acute right middle cerebral artery infarct. No hemorrhage. CTA neck showed, Advanced atherosclerotic plaque disease at the right carotid bifurcation results in greater than 95 % diameter stenosis with diminutive flow within the distal right ICA that continues into the skull base and right MCA territory. Initial echo on 04/11/2019 showed left ventricular ejection fraction of 40-45% with an LV apical thrombus for which she was started on Heparin and transitioned to warfarin. Carotid endovascular intervention was postponed to avoid hemorrhagic conversion with patient instructed to follow-up with neurosurgery in 3 months. Of note she also was found to have an non ST elevation myocardial infarction on admission for which intervention was deferred in setting of large vessel infarct. She was instructed to follow-up with cardiology in 3 months for repeat ECHO and to determine if she should continue Warfarin. Her right axillary hidradenitis suppurativa was treated with a course of antibiotics and she underwent ETOH withdrawal treatment with Serax. She was placed on a dysphagia diet, evaluated by therapy, found to have deficits in mobility and activities of daily living and deemed medically appropriate for discharge to acute rehabilitation unit on 04/29/2019. PAST MEDICAL HISTORY: As per history of present illness (HPI). HOSPITAL COURSE: The patient was admitted and enrolled in a comprehensive physical therapy (PT), occupational therapy (OT), speech and language pathology program. She received 24-hour nursing supervision and weekly team meetings were held to discuss her progress. The patient's initial urinalysis (UA) was negative for a urinary tract infection. However, repeat urine culture grew Morganella and she was started on a three-day course of Levaquin. The patient also complained of right first toe pain, reporting that she had banged her toe in the prior hospital, for which a foot x-ray was ordered showing osteoarthritis. Pain did improve with gabapentin. She finished up a course of Tamiflu for positive influenza without reporting any symptoms of fevers or respiratory symptoms. Her diet was upgraded to a level 3 and thins and she was deemed medically and functionally stable to return home. DISCHARGE MEDICATIONS: As per instructions. FUNCTIONAL HISTORY: On discharge, the patient was standby assist for functional transfers, able to ambulate 50 feet standby assist, and in occupational therapy, she was independent for toileting, standby assist for showering. Thank you for this referral.
== END 2019-05-14 10:30 | disposition home or self-care (01) | DRG 58 ==
LOC: M PM&R 16:45
PROVIDERS: ADMIT Physical Medicine & Rehabilitation; ATTEND Physical Medicine & Rehabilitation
DX: I69.354 Hemiplegia and hemiparesis following cerebral infarction affecting left non-dominant side (principal); I21.4 Non-ST elevation (NSTEMI) myocardial infarction; R13.10 Dysphagia, unspecified; I69.391 Dysphagia following cerebral infarction; E78.5 Hyperlipidemia, unspecified; F10.10 Alcohol abuse, uncomplicated; F17.200 Nicotine dependence, unspecified, uncomplicated; I10 Essential (primary) hypertension; I65.21 Occlusion and stenosis of right carotid artery; L73.2 Hidradenitis suppurativa; R26.89 Other abnormalities of gait and mobility; Z79.01 Long term (current) use of anticoagulants; Z79.82 Long term (current) use of aspirin; Z79.899 Other long term (current) drug therapy

== ENCOUNTER → 2019-07-04 | Outpatient (CLI) | payer OTHER ==
[~2019-07-04] MED LIST: ASPI81TA26 PO; ASPI81TAEC PO; ATOR1TAB21 PO; COLA100C5 PO; COUM2TAB22 PO; FLUO20CA22 PO; FOLI1TAB11 PO; GABA-1171 PO; ISOVUE-370 76% 100ML VIAL As Ordered ONE; LEVO250T12 PO; LIPI80TA PO; METO1TAB32 PO; METO25TA4 PO; PANT-23 PO; PANT40TA3 PO; THIA100T7 PO; THIA100TA PO; VITA1CHW7 PO; VITAD1000T PO; VITMTA PO; WARF-18 PO; WARF-23 PO
--- NOTE | 2019-07-04 09:41 | REP ---
CT ANGIOGRAM OF THE NECK: CT angiogram of the neck performed following the intravenous administration of 75 mL Isovue 370. Sagittal, coronal and 3D MIP reconstruction images are performed. There is mild atherosclerotic calcification of the aortic arch. Left common carotid artery demonstrates mild diffuse plaquing and narrowing. There is mild plaquing and narrowing in the carotid bulb. There is moderates stenosis of the origin of the left internal carotid artery. Degree of stenosis is approximately 80%. Remaining left internal carotid artery is diffusely thin. There is moderate narrowing in the left carotid siphon. The right common carotid artery demonstrates mild plaquing and narrowing. There is mild plaquing and narrowing of the carotid bulb. The right internal carotid artery demonstrates fairly high-grade stenosis proximally, with a degree of stenosis approximately 90%. More distal internal carotid artery is diffusely thin, as on the left. There is moderate narrowing in the right carotid siphon. Right vertebral artery originates from the right subclavian artery and the left originates from the left subclavian artery. Both are patent and form the patent basilar artery. Multiple normal sized lymph nodes are seen in the bilateral neck soft tissues. There are mild degenerative changes of the cervical spine. IMPRESSION: High grade stenosis proximal right internal carotid artery approximately 90%. There is also relatively high grade stenosis of the proximal left internal carotid artery approximately 80%. The vertebral arteries are patent bilaterally. Electronically Signed by Ben Berry MD 07/04/2019 12:48 P
== END ==
LOC: M RAD 08:23
DX: I65.21 Occlusion and stenosis of right carotid artery (principal)
CPT/HCPCS: 70498; Q9967

== ENCOUNTER 2019-10-10 14:35 | Inpatient (IN) | payer OTHER ==
[~2019-10-10 14:35] MED LIST changes: +D31000TA2 PO; -ISOVUE-370 76% 100ML VIAL As Ordered ONE; +PANT40TA29 PO; -PANT40TA3 PO; -VITAD1000T PO
[2019-10-10] MEDS ORDERED: ENOXAPARIN 80MG/0.8ML SYRINGE (J1650 PER 10MG) ONE (17:00)
[2019-10-10] MEDS ORDERED: AUGMENTIN 875 MG TAB ONE (17:00)
[2019-10-10] MEDS ORDERED: GABAPENTIN 400 MG CAP As Ordered ONE ×2 (17:31→21:47)
[2019-10-10] MEDS ORDERED: DOCUSATE SODIUM 100 MG CAP As Ordered ONE ×2 (17:31→21:47)
[2019-10-10] MEDS ORDERED: ACETAMINOPHEN 500 MG TAB As Ordered ONE ×2 (17:32→21:47)
[2019-10-10] MEDS ORDERED: LACTOBACILLUS ACIDOPHILUS CAP (BACID) ONE ×2 (17:32→21:47)
[2019-10-10] MEDS ORDERED: WARFARIN SOD 5MG TAB ONE (17:32)
[2019-10-10] MEDS ORDERED: LACTOBACILLUS ACIDOPHILUS CAP (BACID) As Ordered ONE ×2 (17:32→21:47)
[2019-10-10] MEDS ORDERED: GABAPENTIN 400 MG CAP ONE ×2 (17:32→21:47)
[2019-10-10] MEDS ORDERED: ACETAMINOPHEN 500 MG TAB ONE ×2 (17:32→21:47)
[2019-10-10] MEDS ORDERED: WARFARIN SOD 5MG TAB As Ordered ONE (17:33)
[2019-10-10] MEDS ORDERED: DOCUSATE SODIUM 100 MG CAP ONE (21:47)
[2019-10-10] MEDS ORDERED: SENNA 8.6 MG TAB (SENOKOT) ONE (21:47)
[2019-10-10] MEDS ORDERED: METOPROLOL SUCC *XL* 25MG TAB (TopROL *XL*) ONE (21:47)
[2019-10-10] MEDS ORDERED: oxyCODONE 5MG TAB ONE (21:47)
[2019-10-10] MEDS ORDERED: METOPROLOL SUCC *XL* 25MG TAB (TopROL *XL*) As Ordered ONE (21:48)
[2019-10-10] MEDS ORDERED: SENNA 8.6 MG TAB (SENOKOT) As Ordered ONE (21:48)
[2019-10-10] MEDS ORDERED: oxyCODONE 5MG TAB As Ordered ONE (22:21)
[2019-10-11] MEDS ORDERED: SENNA 8.6 MG TAB (SENOKOT) ONE (20:53)
[2019-10-11] MEDS ORDERED: ACETAMINOPHEN 500 MG TAB ONE (20:53)
[2019-10-11] MEDS ORDERED: LACTOBACILLUS ACIDOPHILUS CAP (BACID) ONE (20:53)
[2019-10-11] MEDS ORDERED: METOPROLOL TART 12.5 MG PER 1/2 TAB ONE (20:53)
[2019-10-11] MEDS ORDERED: GABAPENTIN 300 MG CAP ONE (20:53)
[2019-10-11] MEDS ORDERED: GABAPENTIN 300 MG CAP As Ordered ONE (20:53)
[2019-10-11] MEDS ORDERED: DOCUSATE SODIUM 100 MG CAP ONE (20:53)
[2019-10-11] MEDS ORDERED: METOPROLOL TART 12.5 MG PER 1/2 TAB As Ordered ONE (20:54)
[2019-10-11] MEDS ORDERED: DOCUSATE SODIUM 100 MG CAP As Ordered ONE (20:54)
[2019-10-11] MEDS ORDERED: SENNA 8.6 MG TAB (SENOKOT) As Ordered ONE (20:54)
[2019-10-11] MEDS ORDERED: LACTOBACILLUS ACIDOPHILUS CAP (BACID) As Ordered ONE (20:54)
[2019-10-11] MEDS ORDERED: ACETAMINOPHEN 500 MG TAB As Ordered ONE (20:54)
[2019-10-12] MEDS ORDERED: SENNA 8.6 MG TAB (SENOKOT) ONE (20:43)
[2019-10-12] MEDS ORDERED: DOCUSATE SODIUM 100 MG CAP ONE (20:43)
[2019-10-12] MEDS ORDERED: DOCUSATE SODIUM 100 MG CAP As Ordered ONE (20:43)
[2019-10-12] MEDS ORDERED: SENNA 8.6 MG TAB (SENOKOT) As Ordered ONE (20:43)
[2019-10-12] MEDS ORDERED: ACETAMINOPHEN 500 MG TAB ONE ×2 (20:44→20:45)
[2019-10-12] MEDS ORDERED: ACETAMINOPHEN 500 MG TAB As Ordered ONE ×2 (20:44→20:45)
[2019-10-12] MEDS ORDERED: LACTOBACILLUS ACIDOPHILUS CAP (BACID) ONE (20:45)
[2019-10-12] MEDS ORDERED: LACTOBACILLUS ACIDOPHILUS CAP (BACID) As Ordered ONE (20:45)
[2019-10-12] MEDS ORDERED: METOPROLOL TART 12.5 MG PER 1/2 TAB ONE (20:46)
[2019-10-12] MEDS ORDERED: METOPROLOL TART 12.5 MG PER 1/2 TAB As Ordered ONE (20:46)
[2019-10-12] MEDS ORDERED: GABAPENTIN 300 MG CAP ONE (20:48)
[2019-10-12] MEDS ORDERED: GABAPENTIN 300 MG CAP As Ordered ONE (20:48)
[2019-10-14] MEDS ORDERED: DOCUSATE SODIUM 100 MG CAP ONE ×3 (07:49→20:22)
[2019-10-14] MEDS ORDERED: FOLIC ACID 1 MG TAB As Ordered ONE (07:49)
[2019-10-14] MEDS ORDERED: GABAPENTIN 300 MG CAP ONE ×3 (07:49→20:28)
[2019-10-14] MEDS ORDERED: GABAPENTIN 300 MG CAP As Ordered ONE ×3 (07:49→20:28)
[2019-10-14] MEDS ORDERED: DOCUSATE SODIUM 100 MG CAP As Ordered ONE ×3 (07:49→20:22)
[2019-10-14] MEDS ORDERED: FOLIC ACID 1 MG TAB ONE (07:49)
[2019-10-14] MEDS ORDERED: ATORVASTATIN 10 MG TAB ONE (07:50)
[2019-10-14] MEDS ORDERED: LACTOBACILLUS ACIDOPHILUS CAP (BACID) As Ordered ONE ×3 (07:50→20:22)
[2019-10-14] MEDS ORDERED: PANTOPRAZOLE 40MG TAB (PROTONIX) As Ordered ONE (07:50)
[2019-10-14] MEDS ORDERED: METOPROLOL TART 12.5 MG PER 1/2 TAB ONE ×2 (07:50→20:22)
[2019-10-14] MEDS ORDERED: TAMSULOSIN 0.4 MG CAP As Ordered ONE ×2 (07:50→21:20)
[2019-10-14] MEDS ORDERED: ACETAMINOPHEN 500 MG TAB As Ordered ONE ×3 (07:50→20:22)
[2019-10-14] MEDS ORDERED: PANTOPRAZOLE 40MG TAB (PROTONIX) ONE (07:50)
[2019-10-14] MEDS ORDERED: LACTOBACILLUS ACIDOPHILUS CAP (BACID) ONE ×3 (07:50→20:22)
[2019-10-14] MEDS ORDERED: METOPROLOL TART 12.5 MG PER 1/2 TAB As Ordered ONE ×2 (07:50→20:22)
[2019-10-14] MEDS ORDERED: ATORVASTATIN 10 MG TAB As Ordered ONE (07:50)
[2019-10-14] MEDS ORDERED: TAMSULOSIN 0.4 MG CAP ONE ×2 (07:50→21:20)
[2019-10-14] MEDS ORDERED: ACETAMINOPHEN 500 MG TAB ONE ×3 (07:50→20:22)
[2019-10-14] MEDS ORDERED: ASPIRIN 81 MG ENTERIC TAB As Ordered ONE (07:51)
[2019-10-14] MEDS ORDERED: ASPIRIN 81 MG ENTERIC TAB ONE (07:51)
[2019-10-14] MEDS ORDERED: FLUoxetine 10 MG CAP As Ordered ONE (07:51)
[2019-10-14] MEDS ORDERED: FLUoxetine 10 MG CAP ONE (07:51)
[2019-10-14] MEDS ORDERED: WARFARIN SOD 3MG TAB As Ordered ONE (17:10)
[2019-10-14] MEDS ORDERED: WARFARIN SOD 3MG TAB ONE (17:10)
[2019-10-14] MEDS ORDERED: SENNA 8.6 MG TAB (SENOKOT) As Ordered ONE (20:23)
[2019-10-14] MEDS ORDERED: SENNA 8.6 MG TAB (SENOKOT) ONE (20:23)
[2019-10-15] MEDS ORDERED: GABAPENTIN 300 MG CAP ONE ×3 (08:44→20:39)
[2019-10-15] MEDS ORDERED: GABAPENTIN 300 MG CAP As Ordered ONE ×3 (08:44→20:39)
[2019-10-15] MEDS ORDERED: FOLIC ACID 1 MG TAB As Ordered ONE (08:44)
[2019-10-15] MEDS ORDERED: FOLIC ACID 1 MG TAB ONE (08:44)
[2019-10-15] MEDS ORDERED: ACETAMINOPHEN 500 MG TAB ONE ×3 (08:45→20:49)
[2019-10-15] MEDS ORDERED: ATORVASTATIN 10 MG TAB ONE (08:45)
[2019-10-15] MEDS ORDERED: METOPROLOL TART 12.5 MG PER 1/2 TAB ONE ×2 (08:45→20:39)
[2019-10-15] MEDS ORDERED: DOCUSATE SODIUM 100 MG CAP As Ordered ONE ×3 (08:45→20:39)
[2019-10-15] MEDS ORDERED: PANTOPRAZOLE 40MG TAB (PROTONIX) ONE (08:45)
[2019-10-15] MEDS ORDERED: METOPROLOL TART 12.5 MG PER 1/2 TAB As Ordered ONE ×2 (08:45→20:39)
[2019-10-15] MEDS ORDERED: DOCUSATE SODIUM 100 MG CAP ONE ×3 (08:45→20:39)
[2019-10-15] MEDS ORDERED: LACTOBACILLUS ACIDOPHILUS CAP (BACID) ONE ×2 (08:45→20:53)
[2019-10-15] MEDS ORDERED: ACETAMINOPHEN 500 MG TAB As Ordered ONE ×3 (08:45→20:49)
[2019-10-15] MEDS ORDERED: LACTOBACILLUS ACIDOPHILUS CAP (BACID) As Ordered ONE ×2 (08:45→20:53)
[2019-10-15] MEDS ORDERED: ATORVASTATIN 10 MG TAB As Ordered ONE (08:45)
[2019-10-15] MEDS ORDERED: PANTOPRAZOLE 40MG TAB (PROTONIX) As Ordered ONE (08:45)
[2019-10-15] MEDS ORDERED: TAMSULOSIN 0.4 MG CAP ONE (08:46)
[2019-10-15] MEDS ORDERED: ASPIRIN 81 MG ENTERIC TAB ONE (08:46)
[2019-10-15] MEDS ORDERED: FLUoxetine 10 MG CAP As Ordered ONE (08:46)
[2019-10-15] MEDS ORDERED: ASPIRIN 81 MG ENTERIC TAB As Ordered ONE (08:46)
[2019-10-15] MEDS ORDERED: FLUoxetine 10 MG CAP ONE (08:46)
[2019-10-15] MEDS ORDERED: TAMSULOSIN 0.4 MG CAP As Ordered ONE (08:46)
[2019-10-15] MEDS ORDERED: WARFARIN SOD 3MG TAB As Ordered ONE (17:13)
[2019-10-15] MEDS ORDERED: WARFARIN SOD 3MG TAB ONE (17:13)
[2019-10-15] MEDS ORDERED: SENNA 8.6 MG TAB (SENOKOT) As Ordered ONE (20:39)
[2019-10-15] MEDS ORDERED: SENNA 8.6 MG TAB (SENOKOT) ONE (20:39)
[2019-10-16] MEDS ORDERED: FOLIC ACID 1 MG TAB As Ordered ONE (09:18)
[2019-10-16] MEDS ORDERED: GABAPENTIN 300 MG CAP ONE ×4 (09:18→20:31)
[2019-10-16] MEDS ORDERED: DOCUSATE SODIUM 100 MG CAP ONE ×3 (09:18→20:29)
[2019-10-16] MEDS ORDERED: FOLIC ACID 1 MG TAB ONE ×2 (09:18→20:31)
[2019-10-16] MEDS ORDERED: DOCUSATE SODIUM 100 MG CAP As Ordered ONE ×3 (09:18→20:29)
[2019-10-16] MEDS ORDERED: GABAPENTIN 300 MG CAP As Ordered ONE ×3 (09:18→20:29)
[2019-10-16] MEDS ORDERED: ACETAMINOPHEN 500 MG TAB ONE ×3 (09:19→20:31)
[2019-10-16] MEDS ORDERED: METOPROLOL TART 12.5 MG PER 1/2 TAB As Ordered ONE ×2 (09:19→20:31)
[2019-10-16] MEDS ORDERED: ATORVASTATIN 10 MG TAB As Ordered ONE (09:19)
[2019-10-16] MEDS ORDERED: LACTOBACILLUS ACIDOPHILUS CAP (BACID) As Ordered ONE ×3 (09:19→20:31)
[2019-10-16] MEDS ORDERED: PANTOPRAZOLE 40MG TAB (PROTONIX) As Ordered ONE (09:19)
[2019-10-16] MEDS ORDERED: ATORVASTATIN 10 MG TAB ONE (09:19)
[2019-10-16] MEDS ORDERED: LACTOBACILLUS ACIDOPHILUS CAP (BACID) ONE ×3 (09:19→20:31)
[2019-10-16] MEDS ORDERED: METOPROLOL TART 12.5 MG PER 1/2 TAB ONE ×2 (09:19→20:31)
[2019-10-16] MEDS ORDERED: ACETAMINOPHEN 500 MG TAB As Ordered ONE ×3 (09:19→20:31)
[2019-10-16] MEDS ORDERED: PANTOPRAZOLE 40MG TAB (PROTONIX) ONE (09:19)
[2019-10-16] MEDS ORDERED: TAMSULOSIN 0.4 MG CAP ONE (09:20)
[2019-10-16] MEDS ORDERED: ASPIRIN 81 MG ENTERIC TAB ONE (09:20)
[2019-10-16] MEDS ORDERED: TAMSULOSIN 0.4 MG CAP As Ordered ONE (09:20)
[2019-10-16] MEDS ORDERED: FLUoxetine 10 MG CAP ONE (09:20)
[2019-10-16] MEDS ORDERED: FLUoxetine 10 MG CAP As Ordered ONE (09:20)
[2019-10-16] MEDS ORDERED: ASPIRIN 81 MG ENTERIC TAB As Ordered ONE (09:20)
[2019-10-16] MEDS ORDERED: AUGMENTIN 875 MG TAB ONE (13:00)
[2019-10-16] MEDS ORDERED: WARFARIN SOD 3MG TAB ONE (16:55)
[2019-10-16] MEDS ORDERED: WARFARIN SOD 3MG TAB As Ordered ONE (16:55)
[2019-10-16] MEDS ORDERED: oxyCODONE 5MG TAB As Ordered ONE (16:57)
[2019-10-16] MEDS ORDERED: oxyCODONE 5MG TAB ONE (16:57)
[2019-10-16] MEDS ORDERED: SENNA 8.6 MG TAB (SENOKOT) ONE (20:31)
[2019-10-16] MEDS ORDERED: SENNA 8.6 MG TAB (SENOKOT) As Ordered ONE (20:31)
[2019-10-17] MEDS ORDERED: FOLIC ACID 1 MG TAB As Ordered ONE (08:39)
[2019-10-17] MEDS ORDERED: GABAPENTIN 300 MG CAP As Ordered ONE ×3 (08:39→20:08)
[2019-10-17] MEDS ORDERED: METOPROLOL TART 12.5 MG PER 1/2 TAB ONE ×2 (08:40→20:09)
[2019-10-17] MEDS ORDERED: LACTOBACILLUS ACIDOPHILUS CAP (BACID) As Ordered ONE ×3 (08:40→20:09)
[2019-10-17] MEDS ORDERED: DOCUSATE SODIUM 100 MG CAP ONE ×3 (08:40→20:09)
[2019-10-17] MEDS ORDERED: METOPROLOL TART 12.5 MG PER 1/2 TAB As Ordered ONE ×2 (08:40→20:09)
[2019-10-17] MEDS ORDERED: oxyCODONE 5MG TAB ONE ×2 (08:40→15:21)
[2019-10-17] MEDS ORDERED: DOCUSATE SODIUM 100 MG CAP As Ordered ONE ×3 (08:40→20:09)
[2019-10-17] MEDS ORDERED: LACTOBACILLUS ACIDOPHILUS CAP (BACID) ONE ×3 (08:40→20:09)
[2019-10-17] MEDS ORDERED: ACETAMINOPHEN 500 MG TAB ONE ×3 (08:40→20:09)
[2019-10-17] MEDS ORDERED: ACETAMINOPHEN 500 MG TAB As Ordered ONE ×3 (08:40→20:09)
[2019-10-17] MEDS ORDERED: oxyCODONE 5MG TAB As Ordered ONE ×2 (08:40→15:21)
[2019-10-17] MEDS ORDERED: TAMSULOSIN 0.4 MG CAP As Ordered ONE (08:41)
[2019-10-17] MEDS ORDERED: PANTOPRAZOLE 40MG TAB (PROTONIX) ONE (08:41)
[2019-10-17] MEDS ORDERED: FLUoxetine 10 MG CAP As Ordered ONE (08:41)
[2019-10-17] MEDS ORDERED: FLUoxetine 10 MG CAP ONE (08:41)
[2019-10-17] MEDS ORDERED: ASPIRIN 81 MG ENTERIC TAB ONE (08:41)
[2019-10-17] MEDS ORDERED: ATORVASTATIN 10 MG TAB ONE (08:41)
[2019-10-17] MEDS ORDERED: PANTOPRAZOLE 40MG TAB (PROTONIX) As Ordered ONE (08:41)
[2019-10-17] MEDS ORDERED: ASPIRIN 81 MG ENTERIC TAB As Ordered ONE (08:41)
[2019-10-17] MEDS ORDERED: TAMSULOSIN 0.4 MG CAP ONE (08:41)
[2019-10-17] MEDS ORDERED: ATORVASTATIN 10 MG TAB As Ordered ONE (08:41)
[2019-10-17] MEDS ORDERED: GABAPENTIN 300 MG CAP ONE ×2 (16:10→20:08)
[2019-10-17] MEDS ORDERED: WARFARIN SOD 2.5MG TAB ONE (16:11)
[2019-10-17] MEDS ORDERED: WARFARIN SOD 2.5MG TAB As Ordered ONE (16:11)
[2019-10-17] MEDS ORDERED: SENNA 8.6 MG TAB (SENOKOT) ONE (20:09)
[2019-10-17] MEDS ORDERED: SENNA 8.6 MG TAB (SENOKOT) As Ordered ONE (20:09)
[2019-10-18] MEDS ORDERED: FOLIC ACID 1 MG TAB As Ordered ONE (07:51)
[2019-10-18] MEDS ORDERED: FOLIC ACID 1 MG TAB ONE (07:51)
[2019-10-18] MEDS ORDERED: ACETAMINOPHEN 500 MG TAB ONE ×3 (07:51→20:40)
[2019-10-18] MEDS ORDERED: ACETAMINOPHEN 500 MG TAB As Ordered ONE ×3 (07:51→20:40)
[2019-10-18] MEDS ORDERED: DOCUSATE SODIUM 100 MG CAP ONE ×3 (07:51→20:38)
[2019-10-18] MEDS ORDERED: DOCUSATE SODIUM 100 MG CAP As Ordered ONE ×3 (07:51→20:38)
[2019-10-18] MEDS ORDERED: GABAPENTIN 300 MG CAP As Ordered ONE ×3 (07:51→20:38)
[2019-10-18] MEDS ORDERED: GABAPENTIN 300 MG CAP ONE ×3 (07:51→20:38)
[2019-10-18] MEDS ORDERED: oxyCODONE 5MG TAB As Ordered ONE ×3 (07:52→17:45)
[2019-10-18] MEDS ORDERED: LACTOBACILLUS ACIDOPHILUS CAP (BACID) As Ordered ONE ×3 (07:52→20:39)
[2019-10-18] MEDS ORDERED: PANTOPRAZOLE 40MG TAB (PROTONIX) As Ordered ONE (07:52)
[2019-10-18] MEDS ORDERED: LACTOBACILLUS ACIDOPHILUS CAP (BACID) ONE ×3 (07:52→20:39)
[2019-10-18] MEDS ORDERED: METOPROLOL TART 12.5 MG PER 1/2 TAB As Ordered ONE ×2 (07:52→20:39)
[2019-10-18] MEDS ORDERED: oxyCODONE 5MG TAB ONE ×3 (07:52→17:45)
[2019-10-18] MEDS ORDERED: METOPROLOL TART 12.5 MG PER 1/2 TAB ONE ×2 (07:52→20:39)
[2019-10-18] MEDS ORDERED: PANTOPRAZOLE 40MG TAB (PROTONIX) ONE (07:52)
[2019-10-18] MEDS ORDERED: ASPIRIN 81 MG ENTERIC TAB ONE (07:53)
[2019-10-18] MEDS ORDERED: ATORVASTATIN 10 MG TAB As Ordered ONE (07:53)
[2019-10-18] MEDS ORDERED: TAMSULOSIN 0.4 MG CAP ONE (07:53)
[2019-10-18] MEDS ORDERED: TAMSULOSIN 0.4 MG CAP As Ordered ONE (07:53)
[2019-10-18] MEDS ORDERED: ATORVASTATIN 10 MG TAB ONE (07:53)
[2019-10-18] MEDS ORDERED: ASPIRIN 81 MG ENTERIC TAB As Ordered ONE (07:53)
[2019-10-18] MEDS ORDERED: FLUoxetine 10 MG CAP As Ordered ONE (07:53)
[2019-10-18] MEDS ORDERED: FLUoxetine 10 MG CAP ONE (07:53)
[2019-10-18] MEDS ORDERED: AUGMENTIN 875 MG TAB ONE (13:00)
[2019-10-18] MEDS ORDERED: WARFARIN SOD 2.5MG TAB ONE (15:55)
[2019-10-18] MEDS ORDERED: WARFARIN SOD 2.5MG TAB As Ordered ONE (15:55)
[2019-10-18] MEDS ORDERED: SENNA 8.6 MG TAB (SENOKOT) As Ordered ONE (20:39)
[2019-10-18] MEDS ORDERED: SENNA 8.6 MG TAB (SENOKOT) ONE (20:39)
[2019-10-19] MEDS ORDERED: FOLIC ACID 1 MG TAB ONE (07:43)
[2019-10-19] MEDS ORDERED: FOLIC ACID 1 MG TAB As Ordered ONE (07:43)
[2019-10-19] MEDS ORDERED: GABAPENTIN 300 MG CAP As Ordered ONE ×3 (07:43→20:22)
[2019-10-19] MEDS ORDERED: GABAPENTIN 300 MG CAP ONE ×3 (07:43→20:22)
[2019-10-19] MEDS ORDERED: METOPROLOL TART 12.5 MG PER 1/2 TAB As Ordered ONE ×2 (07:44→20:24)
[2019-10-19] MEDS ORDERED: METOPROLOL TART 12.5 MG PER 1/2 TAB ONE ×2 (07:44→20:24)
[2019-10-19] MEDS ORDERED: PANTOPRAZOLE 40MG TAB (PROTONIX) As Ordered ONE (07:44)
[2019-10-19] MEDS ORDERED: DOCUSATE SODIUM 100 MG CAP As Ordered ONE ×2 (07:44→20:22)
[2019-10-19] MEDS ORDERED: LACTOBACILLUS ACIDOPHILUS CAP (BACID) ONE ×3 (07:44→20:23)
[2019-10-19] MEDS ORDERED: LACTOBACILLUS ACIDOPHILUS CAP (BACID) As Ordered ONE ×3 (07:44→20:23)
[2019-10-19] MEDS ORDERED: ATORVASTATIN 10 MG TAB ONE (07:44)
[2019-10-19] MEDS ORDERED: DOCUSATE SODIUM 100 MG CAP ONE ×2 (07:44→20:22)
[2019-10-19] MEDS ORDERED: ATORVASTATIN 10 MG TAB As Ordered ONE (07:44)
[2019-10-19] MEDS ORDERED: PANTOPRAZOLE 40MG TAB (PROTONIX) ONE (07:44)
[2019-10-19] MEDS ORDERED: FLUoxetine 10 MG CAP ONE (07:45)
[2019-10-19] MEDS ORDERED: TAMSULOSIN 0.4 MG CAP As Ordered ONE (07:45)
[2019-10-19] MEDS ORDERED: FLUoxetine 10 MG CAP As Ordered ONE (07:45)
[2019-10-19] MEDS ORDERED: TAMSULOSIN 0.4 MG CAP ONE (07:45)
[2019-10-19] MEDS ORDERED: ACETAMINOPHEN 500 MG TAB ONE ×3 (07:58→20:23)
[2019-10-19] MEDS ORDERED: ASPIRIN 81 MG ENTERIC TAB As Ordered ONE (07:58)
[2019-10-19] MEDS ORDERED: ASPIRIN 81 MG ENTERIC TAB ONE (07:58)
[2019-10-19] MEDS ORDERED: ACETAMINOPHEN 500 MG TAB As Ordered ONE ×3 (07:58→20:23)
[2019-10-19] MEDS ORDERED: oxyCODONE 5MG TAB As Ordered ONE (09:21)
[2019-10-19] MEDS ORDERED: oxyCODONE 5MG TAB ONE (09:21)
[2019-10-19] MEDS ORDERED: WARFARIN SOD 2.5MG TAB As Ordered ONE (17:25)
[2019-10-19] MEDS ORDERED: WARFARIN SOD 2.5MG TAB ONE (17:25)
[2019-10-19] MEDS ORDERED: SENNA 8.6 MG TAB (SENOKOT) As Ordered ONE (20:24)
[2019-10-19] MEDS ORDERED: SENNA 8.6 MG TAB (SENOKOT) ONE (20:24)
[2019-10-20] MEDS ORDERED: ACETAMINOPHEN 500 MG TAB ONE ×3 (07:41→20:14)
[2019-10-20] MEDS ORDERED: GABAPENTIN 300 MG CAP As Ordered ONE ×3 (07:41→20:13)
[2019-10-20] MEDS ORDERED: GABAPENTIN 300 MG CAP ONE ×3 (07:41→20:13)
[2019-10-20] MEDS ORDERED: ACETAMINOPHEN 500 MG TAB As Ordered ONE ×3 (07:41→20:14)
[2019-10-20] MEDS ORDERED: FOLIC ACID 1 MG TAB As Ordered ONE (07:41)
[2019-10-20] MEDS ORDERED: FOLIC ACID 1 MG TAB ONE (07:41)
[2019-10-20] MEDS ORDERED: METOPROLOL TART 12.5 MG PER 1/2 TAB ONE (07:42)
[2019-10-20] MEDS ORDERED: TAMSULOSIN 0.4 MG CAP ONE (07:42)
[2019-10-20] MEDS ORDERED: TAMSULOSIN 0.4 MG CAP As Ordered ONE (07:42)
[2019-10-20] MEDS ORDERED: ATORVASTATIN 10 MG TAB As Ordered ONE (07:42)
[2019-10-20] MEDS ORDERED: PANTOPRAZOLE 40MG TAB (PROTONIX) ONE (07:42)
[2019-10-20] MEDS ORDERED: PANTOPRAZOLE 40MG TAB (PROTONIX) As Ordered ONE (07:42)
[2019-10-20] MEDS ORDERED: LACTOBACILLUS ACIDOPHILUS CAP (BACID) As Ordered ONE ×3 (07:42→20:14)
[2019-10-20] MEDS ORDERED: LACTOBACILLUS ACIDOPHILUS CAP (BACID) ONE ×3 (07:42→20:14)
[2019-10-20] MEDS ORDERED: METOPROLOL TART 12.5 MG PER 1/2 TAB As Ordered ONE (07:42)
[2019-10-20] MEDS ORDERED: ATORVASTATIN 10 MG TAB ONE (07:42)
[2019-10-20] MEDS ORDERED: ASPIRIN 81 MG ENTERIC TAB ONE (07:43)
[2019-10-20] MEDS ORDERED: FLUoxetine 10 MG CAP ONE (07:43)
[2019-10-20] MEDS ORDERED: FLUoxetine 10 MG CAP As Ordered ONE (07:43)
[2019-10-20] MEDS ORDERED: ASPIRIN 81 MG ENTERIC TAB As Ordered ONE (07:43)
[2019-10-20] MEDS ORDERED: WARFARIN SOD 2.5MG TAB As Ordered ONE (15:47)
[2019-10-20] MEDS ORDERED: WARFARIN SOD 2.5MG TAB ONE (15:47)
[2019-10-20] MEDS ORDERED: DOCUSATE SODIUM 100 MG CAP ONE (20:13)
[2019-10-20] MEDS ORDERED: DOCUSATE SODIUM 100 MG CAP As Ordered ONE (20:13)
[2019-10-20] MEDS ORDERED: SENNA 8.6 MG TAB (SENOKOT) As Ordered ONE (20:14)
[2019-10-21] MEDS ORDERED: FOLIC ACID 1 MG TAB As Ordered ONE (07:51)
[2019-10-21] MEDS ORDERED: ACETAMINOPHEN 500 MG TAB As Ordered ONE ×3 (07:52→20:09)
[2019-10-21] MEDS ORDERED: DOCUSATE SODIUM 100 MG CAP As Ordered ONE ×2 (07:52→20:09)
[2019-10-21] MEDS ORDERED: DOCUSATE SODIUM 100 MG CAP ONE ×2 (07:52→20:09)
[2019-10-21] MEDS ORDERED: ACETAMINOPHEN 500 MG TAB ONE ×3 (07:52→20:09)
[2019-10-21] MEDS ORDERED: GABAPENTIN 300 MG CAP ONE ×3 (07:52→20:09)
[2019-10-21] MEDS ORDERED: GABAPENTIN 300 MG CAP As Ordered ONE ×3 (07:52→20:09)
[2019-10-21] MEDS ORDERED: PANTOPRAZOLE 40MG TAB (PROTONIX) As Ordered ONE (07:53)
[2019-10-21] MEDS ORDERED: ATORVASTATIN 10 MG TAB As Ordered ONE (07:53)
[2019-10-21] MEDS ORDERED: LACTOBACILLUS ACIDOPHILUS CAP (BACID) ONE ×3 (07:53→20:09)
[2019-10-21] MEDS ORDERED: METOPROLOL TART 12.5 MG PER 1/2 TAB As Ordered ONE ×2 (07:53→20:09)
[2019-10-21] MEDS ORDERED: METOPROLOL TART 12.5 MG PER 1/2 TAB ONE ×2 (07:53→20:09)
[2019-10-21] MEDS ORDERED: TAMSULOSIN 0.4 MG CAP As Ordered ONE (07:53)
[2019-10-21] MEDS ORDERED: ATORVASTATIN 10 MG TAB ONE (07:53)
[2019-10-21] MEDS ORDERED: TAMSULOSIN 0.4 MG CAP ONE (07:53)
[2019-10-21] MEDS ORDERED: LACTOBACILLUS ACIDOPHILUS CAP (BACID) As Ordered ONE ×3 (07:53→20:09)
[2019-10-21] MEDS ORDERED: PANTOPRAZOLE 40MG TAB (PROTONIX) ONE (07:53)
[2019-10-21] MEDS ORDERED: FLUoxetine 10 MG CAP ONE (07:54)
[2019-10-21] MEDS ORDERED: FLUoxetine 10 MG CAP As Ordered ONE (07:54)
[2019-10-21] MEDS ORDERED: ASPIRIN 81 MG ENTERIC TAB As Ordered ONE (07:54)
[2019-10-21] MEDS ORDERED: ASPIRIN 81 MG ENTERIC TAB ONE (07:54)
[2019-10-21] MEDS ORDERED: oxyCODONE 5MG TAB ONE ×2 (13:52→18:14)
[2019-10-21] MEDS ORDERED: oxyCODONE 5MG TAB As Ordered ONE ×2 (13:52→18:14)
[2019-10-21] MEDS ORDERED: WARFARIN SOD 2.5MG TAB As Ordered ONE (17:02)
[2019-10-21] MEDS ORDERED: WARFARIN SOD 2.5MG TAB ONE (17:02)
[2019-10-21] MEDS ORDERED: SENNA 8.6 MG TAB (SENOKOT) ONE (20:10)
[2019-10-21] MEDS ORDERED: SENNA 8.6 MG TAB (SENOKOT) As Ordered ONE (20:10)
[2019-10-22] MEDS ORDERED: oxyCODONE 5MG TAB ONE (07:26)
[2019-10-22] MEDS ORDERED: oxyCODONE 5MG TAB As Ordered ONE ×2 (07:26→11:32)
[2019-10-22] MEDS ORDERED: GABAPENTIN 300 MG CAP ONE (08:35)
[2019-10-22] MEDS ORDERED: FOLIC ACID 1 MG TAB ONE (08:35)
[2019-10-22] MEDS ORDERED: GABAPENTIN 300 MG CAP As Ordered ONE (08:35)
[2019-10-22] MEDS ORDERED: FOLIC ACID 1 MG TAB As Ordered ONE (08:35)
[2019-10-22] MEDS ORDERED: DOCUSATE SODIUM 100 MG CAP As Ordered ONE (08:36)
[2019-10-22] MEDS ORDERED: LACTOBACILLUS ACIDOPHILUS CAP (BACID) As Ordered ONE (08:36)
[2019-10-22] MEDS ORDERED: ACETAMINOPHEN 500 MG TAB As Ordered ONE (08:36)
[2019-10-22] MEDS ORDERED: METOPROLOL TART 12.5 MG PER 1/2 TAB ONE (08:36)
[2019-10-22] MEDS ORDERED: ATORVASTATIN 10 MG TAB ONE (08:36)
[2019-10-22] MEDS ORDERED: DOCUSATE SODIUM 100 MG CAP ONE (08:36)
[2019-10-22] MEDS ORDERED: PANTOPRAZOLE 40MG TAB (PROTONIX) As Ordered ONE (08:36)
[2019-10-22] MEDS ORDERED: PANTOPRAZOLE 40MG TAB (PROTONIX) ONE (08:36)
[2019-10-22] MEDS ORDERED: ATORVASTATIN 10 MG TAB As Ordered ONE (08:36)
[2019-10-22] MEDS ORDERED: LACTOBACILLUS ACIDOPHILUS CAP (BACID) ONE (08:36)
[2019-10-22] MEDS ORDERED: ACETAMINOPHEN 500 MG TAB ONE (08:36)
[2019-10-22] MEDS ORDERED: METOPROLOL TART 12.5 MG PER 1/2 TAB As Ordered ONE (08:36)
[2019-10-22] MEDS ORDERED: TAMSULOSIN 0.4 MG CAP As Ordered ONE (08:37)
[2019-10-22] MEDS ORDERED: FLUoxetine 10 MG CAP ONE (08:37)
[2019-10-22] MEDS ORDERED: ASPIRIN 81 MG ENTERIC TAB ONE (08:37)
[2019-10-22] MEDS ORDERED: ASPIRIN 81 MG ENTERIC TAB As Ordered ONE (08:37)
[2019-10-22] MEDS ORDERED: FLUoxetine 10 MG CAP As Ordered ONE (08:37)
[2019-10-22] MEDS ORDERED: TAMSULOSIN 0.4 MG CAP ONE (08:37)
[2019-10-22] MEDS ORDERED: AUGMENTIN 875 MG TAB ONE (11:29)
[2019-11-12 14:25] LABS: INR 2.83; PROTHROMBIN TIME 30.4 SECONDS (11.8-14.0)
[2019-11-12 15:32] LABS: BASO % 0.3 % (0.0-1.0); EOS # 0.2 10^3/uL (0.0-0.5); EOS % 1.2 % (0.0-3.0); HEMATOCRIT 29.4 % (36.0-47.0); HEMOGLOBIN 8.8 g/dl (12.0-15.5); LYMPH # 2.7 10^3/uL (1.5-5.0); LYMPH % 20.1 % (24.0-44.0); MEAN CORPUSCULAR HEMOGLOBIN 22.3 pg (27.0-33.0); MEAN CORPUSCULAR HGB CONC 29.9 g/dl (32.0-36.5); MEAN CORPUSCULAR VOLUME 74.6 fl (80.0-96.0); MONO # 0.8 10^3/uL (0.0-0.8); MONO % 5.9 % (0.0-5.0); NEUTROPHILS # 9.8 10^3/uL (1.5-8.5); NEUTROPHILS % 71.9 % (36.0-66.0); PLATELET COUNT, AUTOMATED 613 10^3/uL (150-450); RED BLOOD COUNT 3.94 10^6/uL (4.00-5.40); WHITE BLOOD COUNT 13.6 10^3/uL (4.0-10.0)
[2019-11-25 15:18] LABS: BLOOD UREA NITROGEN 10 MG/DL (7-18); CALCIUM LEVEL 8.9 MG/DL (8.5-10.1); CARBON DIOXIDE LEVEL 28 MEQ/L (21-32); CHLORIDE LEVEL 101 MEQ/L (98-107); CREATININE FOR GFR 0.71 MG/DL (0.55-1.30); GLOMERULAR FILTRATION RATE > 60.0 (>58); GLUCOSE, FASTING 145 MG/DL (70-100); POTASSIUM SERUM 4.3 MEQ/L (3.5-5.1); SODIUM LEVEL 137 MEQ/L (136-145)
[2019-12-02 11:13] LABS: INR 2.75; PROTHROMBIN TIME 29.7 SECONDS (12.5-14.3)
[2019-12-04 08:48] LABS: INR 3.13; PROTHROMBIN TIME 32.9 SECONDS (12.5-14.3)
[2019-12-04 10:13] LABS: INR 3.25; PROTHROMBIN TIME 33.9 SECONDS (12.5-14.3)
[2019-12-04 13:44] LABS: INR 2.99; PROTHROMBIN TIME 31.7 SECONDS (12.5-14.3)
[2019-12-06 11:37] LABS: INR 3.15; PROTHROMBIN TIME 33.1 SECONDS (12.5-14.3)
[2019-12-06 14:50] LABS: HEMATOCRIT 27.8 % (36.0-47.0); HEMOGLOBIN 8.4 g/dl (12.0-15.5); MEAN CORPUSCULAR HEMOGLOBIN 22.5 pg (27.0-33.0); MEAN CORPUSCULAR HGB CONC 30.2 g/dl (32.0-36.5); MEAN CORPUSCULAR VOLUME 74.3 fl (80.0-96.0); PLATELET COUNT, AUTOMATED 704 10^3/uL (150-450); RED BLOOD COUNT 3.74 10^6/uL (4.00-5.40); WHITE BLOOD COUNT 9.1 10^3/uL (4.0-10.0)
[2019-12-06 18:38] LABS: INR 2.9
[2019-12-11 09:27] LABS: BASO % 0.3 % (0.0-1.0); EOS # 0.2 10^3/uL (0.0-0.5); EOS % 2.2 % (0.0-3.0); HEMATOCRIT 28.4 % (36.0-47.0); HEMOGLOBIN 8.5 g/dl (12.0-15.5); LYMPH # 3.1 10^3/uL (1.5-5.0); LYMPH % 28.4 % (24.0-44.0); MEAN CORPUSCULAR HEMOGLOBIN 22.3 pg (27.0-33.0); MEAN CORPUSCULAR HGB CONC 29.9 g/dl (32.0-36.5); MEAN CORPUSCULAR VOLUME 74.3 fl (80.0-96.0); MONO # 0.4 10^3/uL (0.0-0.8); MONO % 3.5 % (0.0-5.0); NEUTROPHILS # 7.1 10^3/uL (1.5-8.5); NEUTROPHILS % 65.1 % (36.0-66.0); PLATELET COUNT, AUTOMATED 725 10^3/uL (150-450); RED BLOOD COUNT 3.82 10^6/uL (4.00-5.40); WHITE BLOOD COUNT 10.9 10^3/uL (4.0-10.0)
[2019-12-11 09:46] LABS: INR 2.58; PROTHROMBIN TIME 28.3 SECONDS (12.5-14.3)
[2019-12-12 09:43] LABS: INR 2.69; PROTHROMBIN TIME 29.2 SECONDS (12.5-14.3)
[2019-12-14 07:24] LABS: INR 2.75; PROTHROMBIN TIME 29.7 SECONDS (12.5-14.3)
[2019-12-14 09:12] LABS: BASO # 0.1 10^3/uL (0.0-0.2); BASO % 0.4 % (0.0-1.0); EOS # 0.3 10^3/uL (0.0-0.5); EOS % 2.4 % (0.0-3.0); HEMATOCRIT 30.9 % (36.0-47.0); HEMOGLOBIN 9.1 g/dl (12.0-15.5); LYMPH # 3.8 10^3/uL (1.5-5.0); MEAN CORPUSCULAR HEMOGLOBIN 22.1 pg (27.0-33.0); MEAN CORPUSCULAR HGB CONC 29.4 g/dl (32.0-36.5); MONO # 0.7 10^3/uL (0.0-0.8); MONO % 5.8 % (0.0-5.0); NEUTROPHILS # 6.7 10^3/uL (1.5-8.5); PLATELET COUNT, AUTOMATED 728 10^3/uL (150-450); RED BLOOD COUNT 4.12 10^6/uL (4.00-5.40); WHITE BLOOD COUNT 11.6 10^3/uL (4.0-10.0)
[2019-12-14 10:16] LABS: INR 3.2; PROTHROMBIN TIME 33.5 SECONDS (12.5-14.3)
--- NOTE | 2019-12-20 15:05 | PMRDS ---
DATE OF ADMISSION: 10/10/2019 DATE OF DISCHARGE: 10/22/2019 CHIEF COMPLAINT/DISCHARGE DIAGNOSIS: Transmetatarsal amputation in the setting of peripheral polyneuropathy. HISTORY OF PRESENT ILLNESS: This is a 49-year-old female with a past medical history of recent stroke with residual left upper extremity and left lower extremity weakness, bilateral severe carotid artery stenosis, left ventricular (LV) mural thrombus, hyperlipidemia, non-ST elevation myocardial infarction (NSTEMI), hypertension, smoker, peripheral arterial disease, who presented to [facility] on 10/02/2019 with right 1st toe gangrene. She was evaluated by vascular surgery and underwent a right 1st toe amputation with debridement on 10/02/2019, which was complicated by worsening necrosis and foul discharge. She then underwent a second debridement with a 1st metatarsal amputation with wound vacuum-assisted closure (VAC) placed on 10/08/2019 and made nonweightbearing. She was placed on a heparin drip and transitioned to Coumadin and also placed on oral antibiotics. She was evaluated by therapy and demonstrated new deficits in mobility and activities of daily living (ADLs) and deemed medically appropriately for discharge to acute rehabilitation unit (ARU). PAST MEDICAL HISTORY: As per history of present illness (HPI). HOSPITAL COURSE: Patient was admitted and enrolled in comprehensive physical therapy(PT)/occupational therapy (OT) program. She received 24-hour nursing supervision, and weekly team meetings were held to discuss her progress. During her hospital course, patient was maintained on daily Coumadin with her INRs closely monitored. She was maintained on gabapentin for her peripheral polyneuropathy in the setting of peripheral arterial disease. She also was maintained on antiplatelet therapy and statin for her recent stroke and received focused therapy on her lower extremity weakness, which was due to the recent infarct. Her wound VAC was changed three times a week. She had no signs of infection and was deemed medically and functionally stable to return home with close followup with her vascular surgeon. DISCHARGE MEDICATIONS: As per instructions. FUNCTIONAL HISTORY ON DISCHARGE: Patient was modified independent from a wheelchair level and requiring some assistance with functional transfers, for which her family was able to assist her with. Thank you for this referral. KB
[2019-12-22 14:36] LABS: INR 2.75; PROTHROMBIN TIME 29.7 SECONDS (12.5-14.3)
[2020-01-04 09:39] LABS: BLOOD UREA NITROGEN 10 MG/DL (7-18); CALCIUM LEVEL 8.9 MG/DL (8.5-10.1); CARBON DIOXIDE LEVEL 28 MEQ/L (21-32); CHLORIDE LEVEL 101 MEQ/L (98-107); CREATININE FOR GFR 0.71 MG/DL (0.55-1.30); GLOMERULAR FILTRATION RATE > 60.0 (>58); GLUCOSE, FASTING 145 MG/DL (70-100); POTASSIUM SERUM 4.3 MEQ/L (3.5-5.1); SODIUM LEVEL 137 MEQ/L (136-145)
[2020-01-08 16:26] LABS: BLOOD UREA NITROGEN 12 MG/DL (7-18); C REACTIVE PROTEIN QUANTITATIV 1.34 MG/DL (0.00-0.30); CALCIUM LEVEL 9.1 MG/DL (8.5-10.1); CARBON DIOXIDE LEVEL 29 mmol/L (20-29); CHLORIDE LEVEL 105 MEQ/L (98-107); CREATININE FOR GFR 0.61 MG/DL (0.55-1.30); GLOMERULAR FILTRATION RATE > 60.0 (>58); GLUCOSE, FASTING 95 MG/DL (70-100); POTASSIUM SERUM 4.6 MEQ/L (3.5-5.1); SODIUM LEVEL 137 MEQ/L (136-145)
[2020-01-14 04:12] LABS: BLOOD UREA NITROGEN 10 MG/DL (7-18); CALCIUM LEVEL 8.5 MG/DL (8.5-10.1); CARBON DIOXIDE LEVEL 24 MEQ/L (21-32); CHLORIDE LEVEL 106 MEQ/L (98-107); GLOMERULAR FILTRATION RATE > 60.0 (>58); GLUCOSE, FASTING 252 MG/DL (70-100); POTASSIUM SERUM 4.2 MEQ/L (3.5-5.1); SODIUM LEVEL 139 MEQ/L (136-145)
== END 2019-10-22 11:30 | disposition home or self-care (01) | DRG 197 ==
LOC: M PM&R 14:35
PROVIDERS: ADMIT Physical Medicine & Rehabilitation; ATTEND Physical Medicine & Rehabilitation
DX: I70.261 Atherosclerosis of native arteries of extremities with gangrene, right leg (principal); I65.23 Occlusion and stenosis of bilateral carotid arteries; I69.354 Hemiplegia and hemiparesis following cerebral infarction affecting left non-dominant side; I10 Essential (primary) hypertension; I25.2 Old myocardial infarction; I25.10 Atherosclerotic heart disease of native coronary artery without angina pectoris; B95.61 Methicillin susceptible Staphylococcus aureus infection as the cause of diseases classified elsewhere; B95.5 Unspecified streptococcus as the cause of diseases classified elsewhere; E78.5 Hyperlipidemia, unspecified; F41.9 Anxiety disorder, unspecified; Z87.891 Personal history of nicotine dependence; Z91.013 Allergy to seafood; Z91.010 Allergy to peanuts; Z79.899 Other long term (current) drug therapy; Z89.421 Acquired absence of other right toe(s)